=== PATIENT | female | born 1950 | race Caucasian/White ===

== ENCOUNTER 2017-04-26 20:15 | Inpatient (IN) | payer MEDICARE ==
[~2017-04-26] VITALS: Ht 162.6 cm; Wt 80.2 kg
[~2017-04-26 20:15] MED LIST: ASPI81TA82 PO; CENE0.62 PO; HYDR-3129 PO; METO25CR PO; NEXI40CA PO; NORV10TA PO; ROSU40 OR; VALS160T4 PO
[2017-04-26 20:18] VITALS: BP 131/57; PULSE 86; RESP 16; TEMP 97.9; O2SAT 94
[2017-04-26 20:28] VITALS: BP 145/65; PULSE 90; RESP 18; TEMP 98.8; O2SAT 98
[2017-04-26] MEDS ORDERED: METO50TA11 PO (20:40)
[2017-04-26] MEDS ORDERED: VITA100T15 PO (20:40)
[2017-04-26] MEDS ORDERED: FOLI400T PO (20:40)
[2017-04-26] MEDS ORDERED: ASPI81CH CHEW (20:40)
[2017-04-26] MEDS ORDERED: FLUT50SP EACH NARE (20:40)
[2017-04-26] MEDS ORDERED: VALS160T4 PO (20:40)
[2017-04-26] MEDS ORDERED: AMLO10TA2 PO (20:40)
[2017-04-26] MEDS ORDERED: ROSU1TAB10 PO (20:40)
[2017-04-26] MEDS ORDERED: CHOL5000 PO (20:40)
[2017-04-26 20:44] VITALS: BP 145/65; O2SAT 98
[2017-04-26] MEDS ORDERED: SODIUM CHLORIDE 0.9% FLUSH 10 ML FLUSH IVF PRN (20:45)
--- NOTE | 2017-04-26 21:00 | PD ---
HPI Chief Complaint: Cardiac Complaint Time Seen by Provider: 20:45 Travel History International Travel<30 days: No Contact w/Intl Traveler<30days: No Traveled to known affect area: No History of Present Illness HPI Patient is a 66-year-old female presenting to the emergency department with a chief complaint of feeling as if her heart is fluttering, she also reports that she has felt nauseated, she has a pain in her left groin that feels like a lump , she was chilled today, and she has pain in her left lower leg. She denies any headache, shortness of breath, chest pain, vomiting, fevers, diarrhea. Patient states that she struck her left foot yesterday, she started noticing that the left pacheco was read today. She states it's painful to the touch, she reports her pain a 6 out of 10 and sore. Patient's past medical history significant for hypertension, hyperlipidemia, prediabetes. She reports a family history significant for heart disease, she states her father had a heart attack at an early age. PFSH Past Medical History Arthritis: No Asthma: No Autoimmune Disease: No Blood Disorders: Yes Cancer: No Cardiovascular Problems: Yes (MVP) High Cholesterol: Yes Chemotherapy: No Congestive Heart Failure: No COPD: No Cerebrovascular Accident: No Coronary Artery Disease: Yes Diabetes: Yes Diminished Hearing: No Endocrine: No GERD: No Genitourinary: No Headaches: No Hepatitis: No Hiatal Hernia: No Hypertension: Yes Immune Disorder: No Kidney Stones: No Musculoskeletal: No Neurologic: No Psychiatric: No Reproductive: No Respiratory: No Immunizations Current: No Migraines: No Myocardial Infarction: No Radiation Therapy: No Renal Failure: No Seizures: No Sickle Cell Disease: No Sleep Apnea: No Ulcer: No Menopausal: Yes Past Surgical History Abdominal Surgery: No AICD: No Appendectomy: No Arteriovenous Shunt: No Cardiac Surgery: No Cholecystectomy: No Ear Surgery: No Endocrine Surgery: No Eye Surgery: No Genitourinary Surgery: No Hysterectomy: Yes () Insulin Pump: No Joint Replacement: No Oral Surgery: Yes (1999) Pacemaker: No Thoracic Surgery: No Other Surgery: Yes Family History Family Myocardial Infarction: Yes Family Hypercholesterolemia: Yes Social History Alcohol Use: Yes Tobacco Use: No Substance Use: No Allergies-Medications (Allergen,Severity, Reaction): Coded Allergies: Penicillin (Verified Allergy, Severe, Shortness of Breath, 04/26/17) Reported Meds & Prescriptions Reported Meds & Active Scripts Active Reported Vitamin B12 (Cyanocobalamin) Unknown Strength Tab Unknown Dose PO DAILY Vitamin D3 (Cholecalciferol) 5,000 Unit Cap 5,000 Units PO DAILY Fluticasone Nasal [place] 50 Mcg/Act Naspr 50 Mcg EACH NARE BID 50 mcg/spray Valsartan-Hydrochlorothiazide 160-12.5 Mg Tab 1 Tab PO DAILY Rosuvastatin (Rosuvastatin Calcium) 40 Mg Tab 40 Mg PO DAILY Metoprolol Succinate ER 24 HR (Metoprolol Succinate) 50 Mg Tab 50 Mg PO DAILY Folic Acid 400 Mcg Tab 1 Mg PO DAILY Aspirin 81 Mg Chew 81 Mg CHEW DAILY Amlodipine (Amlodipine Besylate) 10 Mg Tab 10 Mg PO DAILY Review of Systems Except as stated in HPI: all other systems reviewed are Neg General / Constitutional: Positive: Chills, No: Fever HENT: No: Headaches, Lightheadedness Cardiovascular: Positive: Palpitations, No: Chest Pain or Discomfort, Tachycardia, Dyspnea on exertion Respiratory: No: Shortness of Breath Gastrointestinal: Positive: Nausea, No: Vomiting, Abdominal Pain Genitourinary: Positive: Pelvic Pain (LEFT GROIN), No: Dysuria Musculoskeletal: Positive: Myalgias, Edema, Pain Skin: Positive Dryness (TO BILATERAL HEELS AND LEFT THUMB), Positive Lumps ( LEFT GROIN), Positive Change in Pigmentation Neurologic: No: Focal Abnormalities, Headache Physical Exam Narrative GENERAL: Overweight, well-developed, well-appearing female. Resting comfortably in no acute distress. SKIN: Warm and dry. Patient has chronic appearing dry skin to bilateral heels and left thumb. HEAD: Atraumatic. Normocephalic. EYES: Pupils equal and round. No scleral icterus. No injection or drainage. ENT: No nasal bleeding or discharge. Mucous membranes pink and moist. NECK: Trachea midline. No JVD. CARDIOVASCULAR: Regular rate and rhythm. RESPIRATORY: No accessory muscle use. Clear to auscultation. Breath sounds equal bilaterally. GASTROINTESTINAL: Abdomen soft, non-tender, nondistended. Hepatic and splenic margins not palpable. Tenderness to palpation in left groin, no erythema noted , enlarged lymph node. MUSCULOSKELETAL: Extremities without clubbing, cyanosis. The left pacheco that is erythematous, warm to the touch, tender to palpation. Positive pedal pulses, brisk less than 3 second capillary refill. Patient is neurovascularly intact. Negative Annie sign. NEUROLOGICAL: Awake and alert. No obvious cranial nerve deficits. Motor grossly within normal limits. Five out of 5 muscle strength in the arms and legs. Normal speech. PSYCHIATRIC: Appropriate mood and affect; insight and judgment normal. Data Data Last Documented VS Vital Signs Date Time Temp Pulse Resp B/P Pulse Ox O2 Delivery O2 Flow Rate FiO2 04/26/17 20:44 98 Room Air 04/26/17 20:44 145/65 04/26/17 20:28 98.8 90 18 Orders Electrocardiogram (04/26/17 20:40) Ckmb (Isoenzyme) Profile (04/26/17 20:40) Complete Blood Count With Diff (04/26/17 20:40) Comprehensive Metabolic Panel (04/26/17 20:40) Magnesium (Mg) (04/26/17 20:40) Prothrombin Time / Inr (Pt) (04/26/17 20:40) Act Partial Throm Time (Ptt) (04/26/17 20:40) Troponin I (04/26/17 20:40) Chest, Single Ap (04/26/17 20:40) Ecg Monitoring (04/26/17 20:40) Bilateral Bp Monitoring (04/26/17 20:40) Iv Access Insert/Monitor (04/26/17 20:40) Oximetry (04/26/17 20:40) Oxygen Administration (04/26/17 20:40) Sodium Chloride 0.9% Flush (Ns Flush) (04/26/17 20:45) Thyroid Stimulating Hormone (04/26/17 20:40) Us Leg Venous Doppler (04/26/17 ) Urinalysis - C+S If Indicated (04/26/17 21:00) Blood Culture (04/26/17 21:14) Lactic Acid (04/26/17 21:14) Vancomycin Inj (Vancomycin Inj) (04/26/17 21:30) Labs Laboratory Tests Test 04/26/17 04/26/17 04/26/17 20:45 21:08 21:23 White Blood Count 20.0 TH/MM3 Red Blood Count 4.52 MIL/MM3 Hemoglobin 13.6 GM/DL Hematocrit 40.5 % Mean Corpuscular Volume 89.6 FL Mean Corpuscular Hemoglobin 30.2 PG Mean Corpuscular Hemoglobin 33.7 % Concent Red Cell Distribution Width 13.0 % Platelet Count 217 TH/MM3 Mean Platelet Volume 9.7 FL Neutrophils (%) (Auto) 89.1 % Lymphocytes (%) (Auto) 3.8 % Monocytes (%) (Auto) 6.6 % Eosinophils (%) (Auto) 0.0 % Basophils (%) (Auto) 0.5 % Neutrophils # (Auto) 17.8 TH/MM3 Lymphocytes # (Auto) 0.8 TH/MM3 Monocytes # (Auto) 1.3 TH/MM3 Eosinophils # (Auto) 0.0 TH/MM3 Basophils # (Auto) 0.1 TH/MM3 CBC Comment DIFF FINAL Differential Comment Prothrombin Time 10.6 SEC Prothromb Time International 1.0 RATIO Ratio Activated Partial 25.5 SEC Thromboplast Time Sodium Level 138 MEQ/L Potassium Level 3.5 MEQ/L Chloride Level 104 MEQ/L Carbon Dioxide Level 25.0 MEQ/L Anion Gap 9 MEQ/L Blood Urea Nitrogen 22 MG/DL Creatinine 0.90 MG/DL Estimat Glomerular Filtration 63 ML/MIN Rate Random Glucose 122 MG/DL Calcium Level 9.0 MG/DL Magnesium Level 1.7 MG/DL Total Bilirubin 0.8 MG/DL Aspartate Amino Transf 22 U/L (AST/SGOT) Alanine Aminotransferase 30 U/L (ALT/SGPT) Alkaline Phosphatase 76 U/L Total Creatine Kinase 92 U/L Troponin I LESS THAN 0.02 NG/ML Total Protein 7.1 GM/DL Albumin 3.8 GM/DL Thyroid Stimulating Hormone 2.150 uIU/ML 3rd Gen Urine Color YELLOW Urine Turbidity CLEAR Urine pH 5.5 Urine Specific [place] 1.019 Urine Protein TRACE mg/dL Urine Glucose (UA) NEG mg/dL Urine Ketones NEG mg/dL Urine Occult Blood SMALL Urine Nitrite NEG Urine Bilirubin NEG Urine Urobilinogen LESS THAN 2.0 MG/DL Urine Leukocyte Esterase NEG Urine RBC 2 /hpf Urine WBC 1 /hpf Urine Squamous Epithelial 1 /hpf Cells Urine Bacteria RARE /hpf Urine Mucus FEW /lpf Microscopic Urinalysis Comment CULT NOT INDICATED Lactic Acid Level 1.4 mmol/L MDM Medical Decision Making Medical Screen Exam Complete: Yes Emergency Medical Condition: Yes Medical Record Reviewed: Yes Interpretation(s) Vital Signs Date Time Temp Pulse Resp B/P Pulse Ox O2 Delivery O2 Flow Rate FiO2 7/13/17 20:44 98 Room Air 04/26/17 20:44 145/65 04/26/17 20:44 98 Room Air 04/26/17 20:28 98.8 90 18 145/65 98 04/26/17 20:18 97.9 86 16 131/57 94 Room Air Differential Diagnosis Cellulitis versus DVT versus TIA versus arrhythmia versus electrolyte abnormality versus ACS versus other Narrative Course Patient is 66-year-old female that presented to emergency department for evaluation of groin pain, redness to her left lower leg, heart palpitations and general feeling unwell. Patient's vital signs are stable. Labs and imaging ordered and pending. Left leg appears cellulitic, venous ultrasound of the left lower extremity ordered to rule out DVT. Source of infection could be from the fissures in her feet which appear chronic in nature. Chest x-ray shows no acute disease CBC with elevated white count at 20 with left shift, with this result blood cultures and lactic acid were added on. Vancomycin 1 g IV 1 dose ordered. Ultrasound is negative for DVT, does show multiple lymph nodes. Chemistry reviewed, no acute findings identified TSH is normal Coags are unremarkable Urinalysis unremarkable Lactic acid 1.4 Patient will be admitted for IV antibiotic therapy. Discussed with patient, she is agreeable. Patient was also seen and evaluated by my attending physician. Discussed findings with Dr. Cardona, she accepted admission, patient placed under observation. Private room requested. Diagnosis Primary Impression: Cellulitis and abscess of left leg Admitting Information Admitting Physician Requests: Observation Condition: Stable Katherin Irizarry Apr 26, 2017 21:00
[2017-04-26 21:08] LABS: AUTOMATED NEUTROPHIL # 17.8 TH/MM3 (1.8-7.7); BASOPHIL # 0.1 TH/MM3 (0-0.2); BASOPHIL % 0.5 % (0.0-2.0); HEMATOCRIT 40.5 % (35.0-46.0); HEMO FLAGS DIFF FINAL; LYMPH % 3.8 % (9.0-44.0); LYMPHOCYTE # 0.8 TH/MM3 (1.0-4.8); MEAN CELL VOLUME 89.6 FL (80.0-100.0); MEAN CORPUSCULAR HEMOGLOBIN 30.2 PG (27.0-34.0); MEAN CORPUSCULAR HGB CONC 33.7 % (32.0-36.0); MONO % 6.6 % (0.0-8.0); NEUT % 89.1 % (16.0-70.0); PLATELET COUNT 217 TH/MM3 (150-450); RED BLOOD COUNT 4.52 MIL/MM3 (4.00-5.30)
--- NOTE | 2017-04-26 21:10 | RADRPT ---
EXAM DATE/TIME: 04/26/2017 20:47 [facility] COMPARISON: No previous studies available for comparison. INDICATIONS : Chest discomfort; chest palpitations. MEDICAL HISTORY : Hypertension. Diabetes mellitus type II. Coronary artery disease. SURGICAL HISTORY : Cardiac stent. ENCOUNTER: Initial ACUITY: 3 days PAIN SCORE: 2/10 LOCATION: Bilateral chest FINDINGS: The lungs are clear without infiltrate, nodule, or mass. There is no appreciable pleural effusion fo r technique. Heart and mediastinum are unremarkable. CONCLUSION: No acute cardiopulmonary disease. Mikey Gallardo MD on April 26, 2017 at 21:08 Board Certified Radiologist. This report was verified electronically.
[2017-04-26 21:18] LABS: APTT (PATIENT) 25.5 SEC (24.3-30.1); PROTHROMBIN TIME - PATIENT 10.6 SEC (9.8-11.6)
[2017-04-26] MEDS ORDERED: VANCOMYCIN INJ 1,000 MG in SODIUM CHLOR 0.9% 250 ML INJ 250 ML IV ONE (21:30)
[2017-04-26 21:32] LABS: ALT (GPT) 30 U/L (10-53); ANION GAP 9 MEQ/L (5-15); AST (GOT) 22 U/L (15-37); BLOOD UREA NITROGEN 22 MG/DL (7-18); CHLORIDE 104 MEQ/L (98-107); GLOMERULAR FILTRATION RATE 63 ML/MIN (>89); MAGNESIUM 1.7 MG/DL (1.5-2.5); POTASSIUM 3.5 MEQ/L (3.5-5.1); SODIUM (NA) 138 MEQ/L (136-145)
[2017-04-26 21:43] LABS: ALKALINE PHOSPHATASE 76 U/L (45-117); TOTAL BILIRUBIN ADULT 0.8 MG/DL (0.2-1.0)
[2017-04-26 21:44] LABS: CREATINE KINASE 92 U/L (26-192)
--- NOTE | 2017-04-26 22:02 | RADRPT ---
EXAM DATE/TIME: 04/26/2017 21:21 [facility] COMPARISON: No previous studies available for comparison. INDICATIONS : Swelling. MEDICAL HISTORY : Hypercholesterolemia. Hypertension. Gum recession. Coronary artery disease. Fibroids. Diabetes. SURGICAL HISTORY : Oral surgery. Right knee surgery. ENCOUNTER: Initial ACUITY: 1 day PAIN SCORE: 2/10 LOCATION: Left leg. TECHNIQUE: Venous ultrasound of the leg was performed from the inguinal ligament to the proximal calf. Real-billy e, color Doppler and spectral tracing, compression and augmentation techniques were used. FINDINGS: There is normal compressibility of the deep venous system from the inguinal region to the proximal ca lf. No echogenic clot is seen in the lumen of the common femoral, femoral, popliteal, and posterior tibial veins. There is a normal response of the venous system to proximal and distal augmentation an d respiration. Multiple lymph nodes are present the largest measures 2.8 cm in size with fatty hilum. CONCLUSION: Multiple lymph nodes and no DVT. Mikey Gallardo MD on April 26, 2017 at 22:00 Board Certified Radiologist. This report was verified electronically.
[2017-04-26 22:14] LABS: BACTERIA, URINE RARE /hpf; BLOOD, URINE SMALL (NEG); COMMENT (UR) CULT NOT INDICATED; CULTURE IF INDICATED CULT NOT INDICATED; GLUCOSE,URINE NEG (NEG); KETONE, URINE NEG (NEG); MUCUS URINE FEW /lpf (OCC); NITRITE,URINE NEG (NEG); PH, URINE 5.5 (5.0-8.5); SQUAMOUS EPITHELIAL CELL URINE 1 /hpf (0-5); URINE COLOR YELLOW (YELLW/STRAW)
--- NOTE | 2017-04-26 23:07 | PD ---
Data Data Last Documented VS Vital Signs Date Time Temp Pulse Resp B/P Pulse Ox O2 Delivery O2 Flow Rate FiO2 04/26/17 20:44 98 Room Air 04/26/17 20:44 145/65 04/26/17 20:28 98.8 90 18 Orders Electrocardiogram (04/26/17 20:40) Ckmb (Isoenzyme) Profile (04/26/17 20:40) Complete Blood Count With Diff (04/26/17 20:40) Comprehensive Metabolic Panel (04/26/17 20:40) Magnesium (Mg) (04/26/17 20:40) Prothrombin Time / Inr (Pt) (04/26/17 20:40) Act Partial Throm Time (Ptt) (04/26/17 20:40) Troponin I (04/26/17 20:40) Chest, Single Ap (04/26/17 20:40) Ecg Monitoring (04/26/17 20:40) Bilateral Bp Monitoring (04/26/17 20:40) Iv Access Insert/Monitor (04/26/17 20:40) Oximetry (04/26/17 20:40) Oxygen Administration (04/26/17 20:40) Sodium Chloride 0.9% Flush (Ns Flush) (04/26/17 20:45) Thyroid Stimulating Hormone (04/26/17 20:40) Us Leg Venous Doppler (04/26/17 ) Urinalysis - C+S If Indicated (04/26/17 21:00) Blood Culture (04/26/17 21:14) Lactic Acid (04/26/17 21:14) Vancomycin Inj (Vancomycin Inj) (04/26/17 21:30) Admit Order (Ed Use Only) (04/26/17 22:26) Labs Laboratory Tests Test 04/26/17 04/26/17 04/26/17 20:45 21:08 21:23 White Blood Count 20.0 TH/MM3 Red Blood Count 4.52 MIL/MM3 Hemoglobin 13.6 GM/DL Hematocrit 40.5 % Mean Corpuscular Volume 89.6 FL Mean Corpuscular Hemoglobin 30.2 PG Mean Corpuscular Hemoglobin 33.7 % Concent Red Cell Distribution Width 13.0 % Platelet Count 217 TH/MM3 Mean Platelet Volume 9.7 FL Neutrophils (%) (Auto) 89.1 % Lymphocytes (%) (Auto) 3.8 % Monocytes (%) (Auto) 6.6 % Eosinophils (%) (Auto) 0.0 % Basophils (%) (Auto) 0.5 % Neutrophils # (Auto) 17.8 TH/MM3 Lymphocytes # (Auto) 0.8 TH/MM3 Monocytes # (Auto) 1.3 TH/MM3 Eosinophils # (Auto) 0.0 TH/MM3 Basophils # (Auto) 0.1 TH/MM3 CBC Comment DIFF FINAL Differential Comment Prothrombin Time 10.6 SEC Prothromb Time International 1.0 RATIO Ratio Activated Partial 25.5 SEC Thromboplast Time Sodium Level 138 MEQ/L Potassium Level 3.5 MEQ/L Chloride Level 104 MEQ/L Carbon Dioxide Level 25.0 MEQ/L Anion Gap 9 MEQ/L Blood Urea Nitrogen 22 MG/DL Creatinine 0.90 MG/DL Estimat Glomerular Filtration 63 ML/MIN Rate Random Glucose 122 MG/DL Calcium Level 9.0 MG/DL Magnesium Level 1.7 MG/DL Total Bilirubin 0.8 MG/DL Aspartate Amino Transf 22 U/L (AST/SGOT) Alanine Aminotransferase 30 U/L (ALT/SGPT) Alkaline Phosphatase 76 U/L Total Creatine Kinase 92 U/L Troponin I LESS THAN 0.02 NG/ML Total Protein 7.1 GM/DL Albumin 3.8 GM/DL Thyroid Stimulating Hormone 2.150 uIU/ML 3rd Gen Urine Color YELLOW Urine Turbidity CLEAR Urine pH 5.5 Urine Specific [place] 1.019 Urine Protein TRACE mg/dL Urine Glucose (UA) NEG mg/dL Urine Ketones NEG mg/dL Urine Occult Blood SMALL Urine Nitrite NEG Urine Bilirubin NEG Urine Urobilinogen LESS THAN 2.0 MG/DL Urine Leukocyte Esterase NEG Urine RBC 2 /hpf Urine WBC 1 /hpf Urine Squamous Epithelial 1 /hpf Cells Urine Bacteria RARE /hpf Urine Mucus FEW /lpf Microscopic Urinalysis Comment CULT NOT INDICATED Lactic Acid Level 1.4 mmol/L MDM Supervised Visit with MATTI: Yes Narrative Course The history, exam, and medical decision-making in the associated midlevel provider note were completed with my assistance. I reviewed and agree with the findings presented. I attest that I had a [id number] encounter with the patient on the same day, and personally performed and documented my assessment and findings in the medical record. *My assessment and Findings: This is a 66-year-old female who has a history of prediabetes who presents to the emergency department with increasing swelling and redness of her left lower extremity associated with some palpitations and some swelling in her groin. On exam she has a cellulitis of the distal left lower extremity and she has some cracks in the skin on the sole of her foot which I suspect may be the etiology of her infection. She has a leukocytosis of 20. I think the patient would benefit from admission for IV antibiotics in the setting of cellulitis. Diagnosis Primary Impression: Cellulitis and abscess of left leg Condition: Stable Mai Cruz MD Apr 26, 2017 23:07
[2017-04-26 23:24] VITALS: BP 121/58; PULSE 104; RESP 18; O2SAT 92
--- NOTE | 2017-04-26 23:34 | HHI.HP ---
cc: Tegan Yañez HPI [facility] Tegan Yañez MD Admission Diagnosis cellulitis Diagnoses: (1) Cellulitis Chief Complaint: chills, palpitations Travel History International Travel<30 Days: No Contact w/Intl Traveler <30 Da: No Traveled to Known Affected Are: No History of Present Illness Written by Carmella Cote, acting as scribe for Dr. Cardona on 04/26/17 at 23:34. The patient is seen in the ED. She reports that she has palpitations off and on chronically. She denies atrial fibrillation. Denies accompanying shortness of breath. She was also complaining of left leg pain. The patient states that she is pre-diabetic. Plantar surface of foot is red with skin cracking. There is a large crack inferior to great toe and it is edematous and quite tender. States she was chilled and her lips were turning blue and her fingers looked like they'd been left in water for too long. Nausea/no vomiting. The patient is also reporting left lower abdominal pain, denies hematuria, dysuria. She reports diarrhea for 2 - 3 times per day; denies black stool. She reports diverticulosis history. She reports some red streaks on toilet paper and endorses a history of hemorrhoids. Review of Systems Except as stated in HPI: all other systems reviewed are Neg Past Family Social History Past Medical History CAD with stent placement 2007 MVP Hyperlipidemia Pre-diabetes Hypertension Denies COPD/asthma/emphysema, liver or kidney problems, DVT, PE, CVA, seizures, thyroid dysfunction, or cancer. Past Surgical History Hysterectomy Right knee arthroscopy - forearm Left arm ORIF with plate placement Nose polyps . Reported Medications Reported Meds & Active Scripts Active Reported Vitamin B12 (Cyanocobalamin) Unknown Strength Tab Unknown Dose PO DAILY Vitamin D3 (Cholecalciferol) 5,000 Unit Cap 5,000 Units PO DAILY Fluticasone Nasal [place] 50 Mcg/Act Naspr 50 Mcg EACH NARE BID 50 mcg/spray Valsartan-Hydrochlorothiazide 160-12.5 Mg Tab 1 Tab PO DAILY Rosuvastatin (Rosuvastatin Calcium) 40 Mg Tab 40 Mg PO DAILY Metoprolol Succinate ER 24 HR (Metoprolol Succinate) 50 Mg Tab 50 Mg PO DAILY Folic Acid 400 Mcg Tab 1 Mg PO DAILY Aspirin 81 Mg Chew 81 Mg CHEW DAILY Amlodipine (Amlodipine Besylate) 10 Mg Tab 10 Mg PO DAILY . Allergies: Coded Allergies: Penicillin (Verified Allergy, Severe, Shortness of Breath, 04/26/17) Active Ordered Medications Current Medications Sodium Chloride 2 ml 2 ml UNSCH PRN IVF FLUSH AFTER USING IV ACCESS; Start at 20:45 Vancomycin HCl/ Sodium Chloride (Vancomycin Inj/ NS 250 ml Inj) 250 ml @ 250 mls/hr ONCE ONCE IV Last administered on 04/26/17t 21:41; Start 04/26/17 at 21 :30; Stop 04/26/17 at 22:29; Status DC . Family History Sister with sarcoma - rare type - head/neck - spindle cell Nephew with cancer Mother heart problems Father heart problems . Social History Alcohol: social use, 3 - 4 drinks per month Tobacco: quit 10 - 15 years ago Illicit Drugs: denies . Physical Exam Vital Signs Vital Signs Date Time Temp Pulse Resp B/P Pulse Ox O2 Delivery O2 Flow Rate FiO2 04/26/17 23:24 104 18 121/58 92 Room Air 04/26/17 20:44 98 Room Air 04/26/17 20:44 145/65 04/26/17 20:44 98 Room Air 04/26/17 20:28 98.8 90 18 145/65 98 04/26/17 20:18 97.9 86 16 131/57 94 Room Air Physical Exam GENERAL: This is a pleasant female patient, in no apparent distress. SKIN: Plantar surface of left foot is red with skin cracking noted on heel. There is a large crack inferior to great toe and it is edematous and quite tender. The left lower leg has erythema extending up from ankle to mid pacheco area. The skin is notably warm to touch. HEAD: Atraumatic. Normocephalic. EYES: No scleral icterus. No injection or drainage. ENT: Nose without bleeding, purulent drainage. NECK: Trachea midline. No JVD. CARDIOVASCULAR: Regular rate and rhythm without murmurs, gallops, or rubs. RESPIRATORY: Clear to auscultation. Breath sounds equal bilaterally. No wheezes , rales, or rhonchi. GASTROINTESTINAL: Abdomen soft, slightly tender left lower abdominal quadrant, nondistended. No guarding. MUSCULOSKELETAL: Extremities without clubbing, cyanosis, or edema. No calf tenderness. NEUROLOGICAL: Awake and alert. Motor and sensory grossly within normal limits. Normal speech. . Laboratory Laboratory Tests Test 04/26/17 04/26/17 04/26/17 20:45 21:08 21:23 White Blood Count 20.0 Red Blood Count 4.52 Hemoglobin 13.6 Hematocrit 40.5 Mean Corpuscular Volume 89.6 Mean Corpuscular Hemoglobin 30.2 Mean Corpuscular Hemoglobin 33.7 Concent Red Cell Distribution Width 13.0 Platelet Count 217 Mean Platelet Volume 9.7 Neutrophils (%) (Auto) 89.1 Lymphocytes (%) (Auto) 3.8 Monocytes (%) (Auto) 6.6 Eosinophils (%) (Auto) 0.0 Basophils (%) (Auto) 0.5 Neutrophils # (Auto) 17.8 Lymphocytes # (Auto) 0.8 Monocytes # (Auto) 1.3 Eosinophils # (Auto) 0.0 Basophils # (Auto) 0.1 CBC Comment DIFF FINAL Differential Comment Prothrombin Time 10.6 Prothromb Time International 1.0 Ratio Activated Partial 25.5 Thromboplast Time Sodium Level 138 Potassium Level 3.5 Chloride Level 104 Carbon Dioxide Level 25.0 Anion Gap 9 Blood Urea Nitrogen 22 Creatinine 0.90 Estimat Glomerular Filtration 63 Rate Random Glucose 122 Calcium Level 9.0 Magnesium Level 1.7 Total Bilirubin 0.8 Aspartate Amino Transf 22 (AST/SGOT) Alanine Aminotransferase 30 (ALT/SGPT) Alkaline Phosphatase 76 Total Creatine Kinase 92 Troponin I LESS THAN 0.02 Total Protein 7.1 Albumin 3.8 Thyroid Stimulating Hormone 2.150 3rd Gen Urine Color YELLOW Urine Turbidity CLEAR Urine pH 5.5 Urine Specific [place] 1.019 Urine Protein TRACE Urine Glucose (UA) NEG Urine Ketones NEG Urine Occult Blood SMALL Urine Nitrite NEG Urine Bilirubin NEG Urine Urobilinogen LESS THAN 2.0 Urine Leukocyte Esterase NEG Urine RBC 2 Urine WBC 1 Urine Squamous Epithelial 1 Cells Urine Bacteria RARE Urine Mucus FEW Microscopic Urinalysis Comment CULT NOT INDICATED Lactic Acid Level 1.4 Date/Time Procedure Status Source Growth 04/26/17 21:23 Aerobic Blood Culture Received Blood Peripheral Pending 04/26/17 21:23 Anaerobic Blood Culture Received Blood Peripheral Pending Result Diagram: 04/26/17204404/26/172044 Imaging Last Impressions Chest X-Ray 04/26/172039 Signed Impressions: Service Date/Time: April 20:47 - CONCLUSION: No acute cardiopulmonary disease. Mikey Gallardo MD Lower Extremity Ultrasound 04/26/17 0000 Signed Impressions: Service Date/Time: , April 26, 2017 21:21 - CONCLUSION: Multiple lymph nodes and no DVT. Mikey Gallardo MD . Assessment and Plan Problem List: (1) Cellulitis ICD Code: L03.90 Status: Acute (2) Leukocytosis ICD Code: D72.829 Status: Acute (3) Abdominal pain ICD Code: R10.9 Status: Acute (4) Palpitations ICD Code: R00.2 Status: Acute Assessment and Plan Mrs. Partida presented to the ED on 04/26/17 complaining of heart fluttering, nausea, chills, pain in left lower leg, and a lump in her left groin. Cellulitis - pain on plantar surface near great toe with skin impairment - Foot x-ray to evaluate for osteomyelitis - concern regarding diabetes vs pre-diabetes - will check HgA1C (EMR reviewed and HgA1C was 5.9 in 2013, nothing more recent in system) Leukocytosis with neutrophilia - likely secondary to cellulitis - WBC 20.0 - Lactic acid 1.4 - repeat CBC in a.m. and follow WBC results Abdominal pain - check CT of abdomen/pelvis with IV contrast - suspect diverticulitis - await results to assist in determining best antibiotic therapy choice for cellulitis Palpitations in patient with CAD s/p stenting - Continuous cardiac telemetry to monitor for arrhythmia - Monitor vital signs every 4h - suspect symptoms are related to tachycardia secondary to infectious process DVT prophylaxis - Lovenox 40 mg subq q24h . This note was transcribed by [email or web address] [Carmella Cote]. I, Dr. Alexandra Cardona personally performed the history, physical exam, and medical decision making; and confirmed the accuracy of the information in the transcribed note. Authenticated by Dr. Alexandra Cardona on 04/26/17 at 23:34. Discussed Condition With ER physician, patient, and RN . Carmella Cote Apr 26, 2017 23:34 Alexandra Cardona MD May 09, 2017 09:02
[2017-04-27] VITALS (8 sets, daily range): BP systolic 119–135; BP diastolic 57–65; PULSE 85–104; RESP 18; TEMP 98.5–99.9; O2SAT 94–100
[2017-04-27] MEDS ORDERED: SODIUM CHLORIDE 0.9% FLUSH 10 ML FLUSH IV FLUSH PRN
[2017-04-27] MEDS ORDERED: NALOXONE HCL 0.4 MG/ML AMP IV PRN
--- NOTE | 2017-04-27 01:24 | RADRPT ---
EXAM DATE/TIME: 04/27/2017 00:46 [facility] COMPARISON: No previous studies available for comparison. INDICATIONS : Pain in left foot. Dry skin. MEDICAL HISTORY : None. SURGICAL HISTORY : None. ENCOUNTER: Initial ACUITY: 2 weeks PAIN SCORE: 3/10 LOCATION: Left posterior near first digit FINDINGS: Two view examination of the left foot demonstrates no soft tissue swelling, dislocation, or fracture. The calcaneus is intact. Bony mineralization is normal. CONCLUSION: No acute disease. Chris Patel MD on April 27, 2017 at 1:22 Board Certified Radiologist. This report was verified electronically.
[2017-04-27] MEDS: ENOXAPARIN SODIUM 40 MG/0.4 ML SYRINGE SQ SCH (05:14)
[2017-04-27] MEDS: SODIUM CHLORIDE 0.9% FLUSH 10 ML FLUSH IV FLUSH SCH ×2 (07:51→20:06)
[2017-04-27 08:04] LABS: AUTOMATED NEUTROPHIL # 17.6 TH/MM3 (1.8-7.7); BASOPHIL % 0.2 % (0.0-2.0); HEMATOCRIT 36.6 % (35.0-46.0); HEMO FLAGS DIFF FINAL; LYMPH % 5.2 % (9.0-44.0); MEAN CELL VOLUME 88.8 FL (80.0-100.0); MEAN CORPUSCULAR HEMOGLOBIN 30.1 PG (27.0-34.0); MEAN CORPUSCULAR HGB CONC 33.9 % (32.0-36.0); MONO % 5.8 % (0.0-8.0); NEUT % 88.8 % (16.0-70.0); PLATELET COUNT 195 TH/MM3 (150-450); RED BLOOD COUNT 4.12 MIL/MM3 (4.00-5.30); RED CELL DISTRIBUTION WIDTH 13.1 % (11.6-17.2); WHITE BLOOD COUNT 19.8 TH/MM3 (4.0-11.0)
[2017-04-27 08:27] LABS: ANION GAP 9 MEQ/L (5-15); BICARBONATE 25.1 MEQ/L (21.0-32.0); BLOOD UREA NITROGEN 17 MG/DL (7-18); CHLORIDE 102 MEQ/L (98-107); GLOMERULAR FILTRATION RATE 79 ML/MIN (>89); SODIUM (NA) 136 MEQ/L (136-145)
[2017-04-27] MEDS ORDERED: POTASSIUM CHLORIDE 20 MEQ CONTROLLED RELEASE TAB PO ONE (09:45)
[2017-04-27] MEDS ORDERED: MAGNESIUM SULFATE 1 GM PREMIX 100 ML IV ONE (09:45)
[2017-04-27] MEDS ORDERED: DIATRIZOATE MEGLUM/DIATRIZOATE SOD 9 ML CUP PO ONE (09:45)
--- NOTE | 2017-04-27 10:43 | HHI.PR ---
Subjective Remarks Follow-up for lower extremity cellulitis, palpitations, abdominal pain. The patient is doing well today. She is drinking contrast for abdominal CT. Lower extremity redness is improving since admission. She does have some swelling of that leg. She continues to have mild palpitations. She denies any chest pain or shortness of breath. Abdominal pain is mild. She's had a colonoscopy in the past and told that she had diverticulosis. She's never had diverticulitis. She denies any fevers or chills. She did have a small amount of blood whenever she wiped recently. Objective Vitals Vital Signs Date Time Temp Pulse Resp B/P Pulse Ox O2 Delivery O2 Flow Rate FiO2 04/27/17 08:00 99.2 97 18 119/57 95 04/27/17 04:00 98.5 88 18 131/60 95 04/27/17 03:31 85 04/27/17 03:08 Room Air 04/27/17 00:14 102 18 121/59 96 04/27/17 00:00 98.9 104 18 131/60 100 04/26/17 23:24 104 18 121/58 92 Room Air 04/26/17 20:44 98 Room Air 04/26/17 20:44 145/65 04/26/17 20:44 98 Room Air 04/26/17 20:28 98.8 90 18 145/65 98 04/26/17 20:18 97.9 86 16 131/57 94 Room Air I/O 04/26/17 04/26/17 04/26/17 04/27/17 04/27/17 04/27/17 07:00 15:00 23:00 07:00 15:00 23:00 Intake Total 240 ml Balance 240 ml Intake Oral 240 ml # Voids 0 # Bowel Movements 0 Result Diagram: 04/27/17 0703 04/27/17 0703 Imaging Last Impressions Foot X-Ray 04/27/17 0000 Signed Impressions: Service Date/Time: Thursday, April 27, 2017 00:46 - CONCLUSION: No acute disease. Chris Patel MD Chest X-Ray 04/26/170 Signed Impressions: Service Date/Time: April 20:47 - CONCLUSION: No acute cardiopulmonary disease. Mikey Gallardo MD Lower Extremity Ultrasound 04/26/17 0000 Signed Impressions: Service Date/Time: April 21:21 - CONCLUSION: Multiple lymph nodes and no DVT. KMaribeth Gallardo MD Objective Remarks GENERAL: Well-developed well-nourished. In no acute distress. SKIN: Warm and dry. Dry cracked skin of both feet. HEENT: Normocephalic. Pupils equal and round. Mucous membranes pink and moist. CARDIOVASCULAR: Regular rate and rhythm. No murmur appreciated. RESPIRATORY: No accessory muscle use. Clear to auscultation. Breath sounds equal bilaterally. GASTROINTESTINAL: Abdomen soft, non-tender, nondistended. Bowel sounds x4. MUSCULOSKELETAL: Erythema and edema of the anterior pacheco on the left, erythema is decreased compared to previous marking. Trace edema on the right. NEUROLOGICAL: Awake and alert. No focal neurological deficits. Moves upper and lower extremities spontaneously. Normal speech. PSYCHIATRIC: Appropriate mood and affect; insight and judgment normal. A/P Problem List: (1) Cellulitis ICD Code: L03.90 Status: Acute (2) Leukocytosis ICD Code: D72.829 Status: Acute (3) Abdominal pain ICD Code: R10.9 Status: Acute (4) Palpitations ICD Code: R00.2 Status: Acute Assessment and Plan Mrs. Partida presented to the ED on 04/26/17 complaining of heart fluttering, nausea, chills, pain in left lower leg, and a lump in her left groin. Cellulitis, left anterior pacheco: Improving. Reviewed: Left foot x-ray with no acute process. Ultrasound negative for DVT. -Received IV vancomycin in the ED, continue -Elevate lower extremity -Lac-Hydrin for dry skin Abdominal pain: Abdominal exam is essentially benign. The patient does have significant leukocytosis. History of diverticulosis. - check CT of abdomen/pelvis - On empiric antibiotics Sepsis: Possibly secondary to cellulitis or underlying diverticulitis. WBC 20K. Tachycardia. Tmax 99.2. Lactic acid within normal limits. -IV antibiotics -Follow up blood cultures and CBC Palpitations: Suspect symptoms are related to tachycardia secondary to infectious process Reviewed: Patient with some mild sinus tachycardia. EKG essentially unremarkable. TSH within normal limits. - Continuous cardiac telemetry to monitor for arrhythmia Hyperglycemia: History of prediabetes. -Hemoglobin A1c pending Hypokalemia/hypomagnesemia: -Replace potassium orally and magnesium IV -Follow up BMP DVT prophylaxis - Lovenox 40 mg subq q24h Diomedes Patel Apr 27, 2017 10:43
[2017-04-27] MEDS: LACTIC ACID (AMMONIUM LACTATE) 12% LOTION 225 GM BTL TOPICAL SCH ×2 (10:45→20:05)
[2017-04-27] MEDS ORDERED: PIPERACIL-TAZO 3.375 GM PREMIX 50 ML IV SCH (11:00)
[2017-04-27] MEDS ORDERED: IOHEXOL 350 MG/ML 10 ML VIAL (for RAD DIAG) IV ONE (14:41)
--- NOTE | 2017-04-27 15:08 | RADRPT ---
EXAM DATE/TIME: 04/27/2017 14:30 [facility] COMPARISON: No previous studies available for comparison. INDICATIONS : Lower left quadrant pain history of diverticulosis IV CONTRAST: 66 cc Omnipaque 350 (iohexol) IV ORAL CONTRAST: Prescribed oral contrast ingested. RADIATION DOSE: 14.52 CTDIvol (mGy) MEDICAL HISTORY : Hypertension. Diverticulosis. Diabetes mellitus type 2.CAD SURGICAL HISTORY : Hysterectomy. ENCOUNTER: Subsequent ACUITY: 3 days PAIN SCALE: 6/10 LOCATION: Left lower quadrant TECHNIQUE: Volumetric scanning of the abdomen and pelvis was performed. Using automated exposure control and ad justment of the mA and/or kV according to patient size, radiation dose was kept as low as reasonably achievable to obtain optimal diagnostic quality images. DICOM format image data is available electro nically for review and comparison. FINDINGS: LOWER LUNGS: Minimal left basal atelectasis/scarring. LIVER: There are small peripheral subcentimeter hypodense lesions noted in segments 5 and 6 of the liver faustino t are too small to characterize. A third hypodense lesion in segment 4B measuring 1.2 x 0.8 cm and ap pears to demonstrate peripheral globular enhancement although this cannot be confirmed due to the lac k of early arterial phase. Liver is otherwise grossly unremarkable. Small gallstone in the gallbladde r neck which is mildly distended but otherwise unremarkable by CT. SPLEEN: Normal size without lesion. PANCREAS: Within normal limits. KIDNEYS: Simple appearing cyst in the inferior pole of the left kidney measuring 4.0 x 2.9 x 4.1 cm. Multiple small parapelvic cysts on the left. Kidneys otherwise demonstrate symmetric enhancement without evide nce for hydronephrosis. ADRENAL GLANDS: Within normal limits. VASCULAR: There is no aortic aneurysm. BOWEL/MESENTERY: Moderate sigmoid diverticulosis and scattered descending colonic diverticula. No significant inflamma tory changes with suggested diverticulitis. Appendix is normal. Remainder of the bowel are unremarkab le without evidence for obstruction. ABDOMINAL WALL: Within normal limits. RETROPERITONEUM: Scattered lymph nodes are subcentimeter in size in short axis diameter. BLADDER: No wall thickening or mass. REPRODUCTIVE: Uterus is surgically absent. The INGUINAL: Bilateral slightly prominent lymph nodes with the largest measuring 1.9 x 3.4 cm on the left. MUSCULOSKELETAL: No focal abnormal lytic or blastic bony lesions. CONCLUSION: 1. Moderate sigmoid diverticulosis and scattered descending colonic diverticula without significant i nflammatory changes to suggest diverticulitis at this time. 2. Cholelithiasis. 3. Multiple very small hypodense nearly cystic hepatic lesions with the largest in segment 4B. These lesions are incompletely characterized due to small size. There are some findings that suggest the se gment 4 lesion may reflect a hemangioma. Statistically, subcentimeter low-density hepatic lesions ref lect cysts. 4. Left renal cysts. 5. Nonspecific inguinal adenopathy, likely reactive. Leobardo Ruelas MD on April 27, 2017 at 14:46 Board Certified Radiologist. This report was verified electronically.
[2017-04-27] MEDS ORDERED: Vancomycin Consult Pharmacy 1 EA OTHER SCH (15:45)
[2017-04-27 16:44] LABS: HEMOGLOBIN A1b 1.7 %; HEMOGLOBIN LA1C 2.1 %; HEMOGLOBIN P3 4.1 %
[2017-04-27] MEDS: VANCOMYCIN 1,500 MG/NS 500 ML IV SCH ×2 (17:21)
[2017-04-28] VITALS (7 sets, daily range): BP systolic 113–139; BP diastolic 61–70; PULSE 65–94; RESP 18–20; TEMP 97.2–99.7; O2SAT 94–100
[2017-04-28] MEDS: ENOXAPARIN SODIUM 40 MG/0.4 ML SYRINGE SQ SCH (05:29)
[2017-04-28 07:57] LABS: AUTOMATED NEUTROPHIL # 11.2 TH/MM3 (1.8-7.7); BASOPHIL % 0.2 % (0.0-2.0); EOSINOPHIL % 0.2 % (0.0-4.0); HEMO FLAGS DIFF FINAL; LYMPH % 8.6 % (9.0-44.0); LYMPHOCYTE # 1.2 TH/MM3 (1.0-4.8); MEAN CELL VOLUME 90.7 FL (80.0-100.0); MEAN CORPUSCULAR HEMOGLOBIN 30.4 PG (27.0-34.0); MEAN CORPUSCULAR HGB CONC 33.5 % (32.0-36.0); MONO % 9.4 % (0.0-8.0); NEUT % 81.6 % (16.0-70.0); PLATELET COUNT 170 TH/MM3 (150-450); RED BLOOD COUNT 4.08 MIL/MM3 (4.00-5.30); RED CELL DISTRIBUTION WIDTH 13.3 % (11.6-17.2); WHITE BLOOD COUNT 13.7 TH/MM3 (4.0-11.0)
[2017-04-28 08:27] LABS: BICARBONATE 23.1 MEQ/L (21.0-32.0); MAGNESIUM 2.3 MG/DL (1.5-2.5); POTASSIUM 3.9 MEQ/L (3.5-5.1)
[2017-04-28] MEDS: SODIUM CHLORIDE 0.9% FLUSH 10 ML FLUSH IV FLUSH SCH ×2 (09:38→21:40)
[2017-04-28] MEDS: LACTIC ACID (AMMONIUM LACTATE) 12% LOTION 225 GM BTL TOPICAL SCH ×2 (09:39→21:40)
--- NOTE | 2017-04-28 10:58 | HHI.PR ---
Subjective Remarks The patient said that her abdominal pain was located in the lower got. She says when she has a bowel movement she feels better. She says the redness in her left leg has improved. She does describe dryness and cracking in both of her feet. She believes she gets allergic reactions to one of her medications, but is unable to pinpoint which one. Discussed with nursing at the bedside. Objective Vitals Vital Signs Date Time Temp Pulse Resp B/P Pulse Ox O2 Delivery O2 Flow Rate FiO2 04/28/17 08:00 99.4 88 20 132/61 94 04/28/17 04:00 98.3 84 18 135/61 100 04/28/17 00:00 99.7 94 18 139/65 95 04/27/17 20:00 Room Air 04/27/17 20:00 99.9 94 18 128/59 94 04/27/17 16:00 99.2 91 18 129/65 96 04/27/17 12:00 95 Room Air 04/27/17 12:00 99.1 90 18 135/64 95 I/O 04/27/17 04/27/17 04/27/17 04/28/17 04/28/17 04/28/17 07:00 15:00 23:00 07:00 15:00 23:00 Intake Total 240 ml 0 ml Output Total 700 ml 500 ml 300 ml Balance 240 ml -700 ml -500 ml -300 ml Intake Oral 240 ml 0 ml Output Urine Total 700 ml 500 ml 300 ml # Voids 0 # Bowel Movements 0 0 0 0 Result Diagram: 04/28/17 0711 04/28/17 0711 Imaging Last Impressions Foot X-Ray 04/27/17 0000 Signed Impressions: Service Date/Time: Thursday, April 27, 2017 00:46 - CONCLUSION: No acute disease. Chris Patel MD Abdomen/Pelvis CT 04/27/17 0000 Signed Impressions: Service Date/Time: Thursday, April 27, 2017 14:30 - CONCLUSION: 1. Moderate sigmoid diverticulosis and scattered descending colonic diverticula without significant inflammatory changes to suggest diverticulitis at this time. 2. Cholelithiasis. 3. Multiple very small hypodense nearly cystic hepatic lesions with the largest in segment 4B. These lesions are incompletely characterized due to small size. There are some findings that suggest the segment 4 lesion may reflect a hemangioma. Statistically, subcentimeter low-density hepatic lesions reflect cysts. 4. Left renal cysts. 5. Nonspecific inguinal adenopathy, likely reactive. Leobardo Ruelas MD Chest X-Ray 04/26/172039 Signed Impressions: Service Date/Time: April 20:47 - CONCLUSION: No acute cardiopulmonary disease. Mikey Gallardo MD Lower Extremity Ultrasound 04/26/17 0000 Signed Impressions: Service Date/Time: April 21:21 - CONCLUSION: Multiple lymph nodes and no DVT. Mikey Gallardo MD Objective Remarks GENERAL: Well-developed well-nourished. In no acute distress. SKIN: Warm and dry. Dry cracked skin on bottom of both feet. HEENT: Normocephalic. Pupils equal and round. Mucous membranes pink and moist. CARDIOVASCULAR: Regular rate and rhythm. No murmur appreciated. RESPIRATORY: No accessory muscle use. Clear to auscultation. Breath sounds equal bilaterally. GASTROINTESTINAL: Abdomen soft, non-tender, nondistended. Bowel sounds x4. MUSCULOSKELETAL: Erythema and edema of the anterior pacheco on the left, erythema is decreased compared to previous marking. Tender and warm to the touch. Trace edema on the right. NEUROLOGICAL: Awake and alert. No focal neurological deficits. Moves upper and lower extremities spontaneously. Normal speech. PSYCHIATRIC: Appropriate mood and affect; insight and judgment normal. Medications and IVs Current Medications Medications (Trade) Dose Ordered Sig/Dima Route Start Time Stop Time Status Last Admin (NS Flush) 2 ml UNSCH PRN IV FLUSH 04/27/17 00:00 (NS Flush) 2 ml BID IV FLUSH 04/27/17 09:00 04/28/17 09:38 (Narcan Inj) 0.4 mg UNSCH PRN IV 04/27/17 00:00 (Lovenox Inj) 40 mg Q24H SQ 04/27/17 06:00 04/28/17 05:29 Lactic Acid 1 applic 1 applic BID TOPICAL 04/27/17 10:45 04/28/17 09:39 Pharmacy Profile Note 0 ml @ 0 mls/hr UNSCH OTHER 04/27/17 15:45 (Vancomycin Inj/ NS 500 ml Inj) 515 ml @ 257.5 mls/ hr Q24H IV 04/27/17 17:00 04/27/17 17:21 Miscellaneous Information SPECIFIC LAB TO BE ... ONCE ONCE .XX 04/30/17 16:45 04/30/17 16:46 A/P Problem List: (1) Cellulitis ICD Code: L03.90 Status: Acute (2) Leukocytosis ICD Code: D72.829 Status: Acute (3) Abdominal pain ICD Code: R10.9 Status: Acute (4) Palpitations ICD Code: R00.2 Status: Acute Assessment and Plan Cellulitis, left anterior pacheco/ Sepsis Reviewed: Left foot x-ray with no acute process. Ultrasound negative for DVT. Still spiking low grade fevers. Leukocytosis improved. - Received IV vancomycin in the ED, continue with pharmacy assisting. - Elevate lower extremity. - Lac-Hydrin for dry skin. - follow blood cultures. Abdominal pain Abdomen is benign. CT of abdomen/pelvis with diverticulosis, hepatic cysts. Symptoms are consistent with IBS. - outpt follow-up. Palpitations EKG essentially unremarkable. TSH within normal limits. Seems resolved. - Continuous cardiac telemetry to monitor for arrhythmia. Hyperglycemia History of prediabetes. Hemoglobin A1c 5.7%. - lifestyle modifications. Hypokalemia Resolved. - follow labs as needed. DVT prophylaxis - Lovenox 40 mg subq q24h Discharge Planning D/c in AM if continues to improve. Sharif Carrillo DO Apr 28, 2017 10:58
--- NOTE | 2017-04-28 11:00 | EKG ---
Date Performed: 04/26/2017 Time Performed: 20:29:45 PTAGE: 66 years EKG: Sinus rhythm NONSPECIFIC T-WAVE ABNORMALITY BORDERLINE ECG PREVIOUS TRACING : 01/11/2013 06.39 DOCTOR: Adrian Shepard Interpretating Date/Time 04/28/2017 10:55:04
[2017-04-28] MEDS: ASPIRIN 81 MG CHEW TAB CHEW SCH (11:45)
[2017-04-28] MEDS: FOLIC ACID 1 MG TAB PO SCH (11:45)
[2017-04-28] MEDS: ATORVASTATIN 80 MG TAB PO SCH (11:45)
[2017-04-28] MEDS: METOPROLOL SUCCINATE 50 MG EXTENDED RELEASE TAB PO SCH (11:50)
[2017-04-28] MEDS: FLUTICASONE PROPIONATE 50 MCG/ACT 16 GM NASAL SPRAY EACH NARE SCH ×2 (14:27→21:40)
[2017-04-28] MEDS: CHOLECALCIFEROL (VIT D3) 5000 UNIT CAP PO SCH (14:27)
[2017-04-28] MEDS: VANCOMYCIN 1,500 MG/NS 500 ML IV SCH ×2 (17:48)
[2017-04-29] VITALS (8 sets, daily range): BP systolic 133–163; BP diastolic 65–84; PULSE 62–79; RESP 17–20; TEMP 96.8–98.2; O2SAT 94–100
[2017-04-29] MEDS: ENOXAPARIN SODIUM 40 MG/0.4 ML SYRINGE SQ SCH (05:43)
[2017-04-29] MEDS: LACTIC ACID (AMMONIUM LACTATE) 12% LOTION 225 GM BTL TOPICAL SCH ×2 (09:00→20:26)
[2017-04-29] MEDS ORDERED: ALUMINUM/MAGNESIUM/SIMETH 30 ML CUP PO ONE (09:15)
[2017-04-29] MEDS ORDERED: ACETAMINOPHEN 325 MG TAB PO PRN (09:15)
[2017-04-29] MEDS ORDERED: ALUMINUM/MAGNESIUM/SIMETH 30 ML CUP PO PRN (09:15)
[2017-04-29] MEDS ORDERED: SODIUM CHLOR 0.9% 1000 ML INJ 1,000 ML IV SCH (09:15)
--- NOTE | 2017-04-29 09:17 | HHI.PR ---
Subjective Remarks The patient complained of feeling dizzy. She also felt nauseous and had some diarrhea. She said she was afraid that if she left the hospital she would come right back. She still has tenderness in her left leg but it does not bother her if she is not bearing weight. Has been ambulating. Objective Vitals Vital Signs Date Time Temp Pulse Resp B/P Pulse Ox O2 Delivery O2 Flow Rate FiO2 04/29/17 04:33 96.8 73 18 141/66 100 04/29/17 01:55 98.0 74 17 143/65 100 04/28/17 21:07 98.0 75 18 121/70 100 04/28/17 19:59 80 04/28/17 16:00 97.8 70 20 113/68 97 04/28/17 12:00 97.2 65 18 113/66 96 I/O 04/28/17 04/28/17 04/28/17 04/29/17 04/29/17 04/29/17 07:00 15:00 23:00 07:00 15:00 23:00 Intake Total 600 ml Output Total 300 ml 300 ml Balance -300 ml 300 ml Intake Oral 600 ml Output Urine Total 300 ml 300 ml # Voids 10 # Bowel Movements 0 Result Diagram: 04/28/17 0711 04/28/17 0711 Imaging Last Impressions Foot X-Ray 04/27/17 0000 Signed Impressions: Service Date/Time: Thursday, April 27, 2017 00:46 - CONCLUSION: No acute disease. Chris Patel MD Abdomen/Pelvis CT 04/27/17 0000 Signed Impressions: Service Date/Time: Thursday, April 27, 2017 14:30 - CONCLUSION: 1. Moderate sigmoid diverticulosis and scattered descending colonic diverticula without significant inflammatory changes to suggest diverticulitis at this time. 2. Cholelithiasis. 3. Multiple very small hypodense nearly cystic hepatic lesions with the largest in segment 4B. These lesions are incompletely characterized due to small size. There are some findings that suggest the segment 4 lesion may reflect a hemangioma. Statistically, subcentimeter low-density hepatic lesions reflect cysts. 4. Left renal cysts. 5. Nonspecific inguinal adenopathy, likely reactive. Leobardo Ruelas MD Chest X-Ray 04/26/172039 Signed Impressions: Service Date/Time: April 20:47 - CONCLUSION: No acute cardiopulmonary disease. Mikey Gallardo MD Lower Extremity Ultrasound 04/26/17 0000 Signed Impressions: Service Date/Time: April 21:21 - CONCLUSION: Multiple lymph nodes and no DVT. Mikey Gallardo MD Objective Remarks GENERAL: Well-developed well-nourished. In no acute distress. SKIN: Warm and dry. Dry cracked skin on bottom of both feet. HEENT: Normocephalic. Pupils equal and round. Mucous membranes pink and moist. CARDIOVASCULAR: Regular rate and rhythm. No murmur appreciated. RESPIRATORY: No accessory muscle use. Clear to auscultation. Breath sounds equal bilaterally. GASTROINTESTINAL: Abdomen soft, non-tender, nondistended. Bowel sounds x4. MUSCULOSKELETAL: Erythema and edema of the anterior pacheco on the left, erythema is decreased compared to previous marking. Tender and warm to the touch. NEUROLOGICAL: Awake and alert. No focal neurological deficits. Moves upper and lower extremities spontaneously. Normal speech. PSYCHIATRIC: Appropriate mood and affect; insight and judgment normal. Medications and IVs Current Medications Medications (Trade) Dose Ordered Sig/Dima Route Start Time Stop Time Status Last Admin (NS Flush) 2 ml UNSCH PRN IV FLUSH 04/27/17 00:00 (NS Flush) 2 ml BID IV FLUSH 04/27/17 09:00 04/28/17 21:40 (Narcan Inj) 0.4 mg UNSCH PRN IV 04/27/17 00:00 (Lovenox Inj) 40 mg Q24H SQ 04/27/17 06:00 04/29/17 05:43 (Lac-Hydrin 12% Lotion) 1 applic BID TOPICAL 04/27/17 10:45 04/28/17 21:40 Miscellaneous Information SPECIFIC LAB TO BE NOMAN... ONCE ONCE .XX 04/30/17 16:45 04/30/17 16:46 (Aspirin Chew) 81 mg DAILY CHEW 04/28/17 11:00 04/28/17 11:45 (Vitamin D3) 5,000 units DAILY PO 04/28/17 12:00 04/28/17 14:27 (Flonase Jaime Spr) 1 spray BID EACH NARE 7/15/17 12:00 04/28/17 21:40 (Folate) 1 mg DAILY PO 04/28/17 11:00 04/28/17 11:45 (Toprol Xl) 50 mg DAILY PO 04/28/17 11:00 04/28/17 11:50 (Lipitor) 80 mg DAILY PO 04/28/17 11:00 04/28/17 11:45 A/P Problem List: (1) Cellulitis ICD Code: L03.90 Status: Acute (2) Leukocytosis ICD Code: D72.829 Status: Acute (3) Abdominal pain ICD Code: R10.9 Status: Acute (4) Palpitations ICD Code: R00.2 Status: Acute Assessment and Plan Cellulitis, left anterior pacheco/ Sepsis Reviewed: Left foot x-ray with no acute process. Ultrasound negative for DVT. Still spiking low grade fevers. Leukocytosis improved. - switch vancomycin to PO clindamycin. - Elevate lower extremity. - Lac-Hydrin for dry skin. - follow blood cultures. NGTD. - pain control as needed. Abdominal pain/ N/V Abdomen is benign. CT of abdomen/pelvis with diverticulosis, hepatic cysts. Symptoms are consistent with IBS. Continues to have diarrhea and nausea along with lightheadedness. - IVFs, ADAT. - outpt follow-up. - pain control and antiemetics as needed. - start a PPI. Maalox as needed. - check LFTs, lipase level. Palpitations EKG essentially unremarkable. TSH within normal limits. Seems resolved. - Continuous cardiac telemetry to monitor for arrhythmia. Hyperglycemia History of prediabetes. Hemoglobin A1c 5.7%. - lifestyle modifications. Hypokalemia Resolved. - follow labs as needed. DVT prophylaxis - Lovenox 40 mg subq q24h Discharge Planning D/c in AM if feeling better Sharif Carrillo DO Apr 29, 2017 09:17
[2017-04-29] MEDS: FOLIC ACID 1 MG TAB PO SCH (10:07)
[2017-04-29] MEDS: FLUTICASONE PROPIONATE 50 MCG/ACT 16 GM NASAL SPRAY EACH NARE SCH ×2 (10:07→20:25)
[2017-04-29] MEDS: METOPROLOL SUCCINATE 50 MG EXTENDED RELEASE TAB PO SCH (10:07)
[2017-04-29] MEDS: ATORVASTATIN 80 MG TAB PO SCH (10:08)
[2017-04-29] MEDS: ASPIRIN 81 MG CHEW TAB CHEW SCH (10:08)
[2017-04-29] MEDS: CHOLECALCIFEROL (VIT D3) 5000 UNIT CAP PO SCH (10:08)
[2017-04-29] MEDS: SODIUM CHLORIDE 0.9% FLUSH 10 ML FLUSH IV FLUSH SCH ×2 (10:09→20:25)
[2017-04-29] MEDS: PANTOPRAZOLE SOD 40 MG DELAYED RELEASE TAB PO SCH (10:16)
[2017-04-29] MEDS: CLINDAMYCIN 150 MG CAP PO SCH ×3 (10:17→23:09)
[2017-04-29 11:36] LABS: AUTOMATED NEUTROPHIL # 6.7 TH/MM3 (1.8-7.7); BASOPHIL % 0.4 % (0.0-2.0); EOSINOPHIL # 0.2 TH/MM3 (0-0.4); EOSINOPHIL % 2.3 % (0.0-4.0); HEMATOCRIT 36.8 % (35.0-46.0); HEMO FLAGS DIFF FINAL; LYMPH % 15.5 % (9.0-44.0); LYMPHOCYTE # 1.4 TH/MM3 (1.0-4.8); MEAN CELL VOLUME 91.4 FL (80.0-100.0); MEAN CORPUSCULAR HEMOGLOBIN 30.7 PG (27.0-34.0); MEAN CORPUSCULAR HGB CONC 33.6 % (32.0-36.0); MONO % 9.5 % (0.0-8.0); NEUT % 72.3 % (16.0-70.0); PLATELET COUNT 178 TH/MM3 (150-450); RED BLOOD COUNT 4.03 MIL/MM3 (4.00-5.30); RED CELL DISTRIBUTION WIDTH 13.5 % (11.6-17.2); WHITE BLOOD COUNT 9.2 TH/MM3 (4.0-11.0)
[2017-04-29 12:07] LABS: ALKALINE PHOSPHATASE 76 U/L (45-117); ALT (GPT) 26 U/L (10-53); ANION GAP 5 MEQ/L (5-15); AST (GOT) 16 U/L (15-37); BICARBONATE 29.7 MEQ/L (21.0-32.0); BLOOD UREA NITROGEN 12 MG/DL (7-18); CHLORIDE 107 MEQ/L (98-107); GLOMERULAR FILTRATION RATE 91 ML/MIN (>89); POTASSIUM 4.1 MEQ/L (3.5-5.1); SODIUM (NA) 142 MEQ/L (136-145); TOTAL BILIRUBIN ADULT 0.5 MG/DL (0.2-1.0)
[2017-04-29] MEDS: LACTOBACILLUS ACIDOPHILUS TAB PO SCH ×2 (13:43→17:01)
[2017-04-30] VITALS: BP 121/60; PULSE 75; RESP 18; TEMP 97.6; O2SAT 99
[2017-04-30 04:00] VITALS: BP 151/77; PULSE 75; RESP 18; TEMP 98.1; O2SAT 97
[2017-04-30] MEDS: ENOXAPARIN SODIUM 40 MG/0.4 ML SYRINGE SQ SCH (05:17)
[2017-04-30] MEDS: CLINDAMYCIN 150 MG CAP PO SCH (05:17)
[2017-04-30 08:00] VITALS: BP 130/64; PULSE 68; RESP 20; TEMP 98.3; O2SAT 95
[2017-04-30 09:07] VITALS: PULSE 67
[2017-04-30] MEDS: LACTOBACILLUS ACIDOPHILUS TAB PO SCH (09:09)
[2017-04-30] MEDS: CHOLECALCIFEROL (VIT D3) 5000 UNIT CAP PO SCH (09:09)
[2017-04-30] MEDS: PANTOPRAZOLE SOD 40 MG DELAYED RELEASE TAB PO SCH (09:09)
[2017-04-30] MEDS: ASPIRIN 81 MG CHEW TAB CHEW SCH (09:09)
[2017-04-30] MEDS: FOLIC ACID 1 MG TAB PO SCH (09:10)
[2017-04-30] MEDS: ATORVASTATIN 80 MG TAB PO SCH (09:10)
[2017-04-30] MEDS: METOPROLOL SUCCINATE 50 MG EXTENDED RELEASE TAB PO SCH (09:10)
[2017-04-30] MEDS: LACTIC ACID (AMMONIUM LACTATE) 12% LOTION 225 GM BTL TOPICAL SCH (09:10)
[2017-04-30] MEDS: SODIUM CHLORIDE 0.9% FLUSH 10 ML FLUSH IV FLUSH SCH (09:10)
[2017-04-30] MEDS: FLUTICASONE PROPIONATE 50 MCG/ACT 16 GM NASAL SPRAY EACH NARE SCH (09:10)
[2017-04-30] MEDS ORDERED: PANT40TA3 PO (09:33)
[2017-04-30] MEDS ORDERED: CLIN150 PO (09:33)
[2017-04-30] MEDS ORDERED: LACT PO (09:33)
[2017-04-30] MEDS ORDERED: VALS1TAB65 PO (09:33)
--- NOTE | 2017-04-30 09:34 | HHI.DCPOC ---
Discharge Care Plan Diagnosis: (1) Abdominal pain (2) Leukocytosis (3) Palpitations (4) Cellulitis Goals to Promote Your Health * To prevent worsening of your condition and complications * To maintain your health at the optimal level Directions to Meet Your Goals Take your medications as prescribed Follow your dietary instruction Follow activity as directed Keep your appointments as scheduled Take your immunizations and boosters as scheduled If your symptoms worsen call your PCP, if no PCP go to Urgent Care Center or Emergency Room Smoking is Dangerous to Your Health. Avoid second hand smoke Call the 24-hour hour crisis hotline for domestic abuse at Sharif Carrillo DO Apr 30, 2017 09:33
--- NOTE | 2017-04-30 09:40 | HHI.DS ---
Discharge Summary Admission Date Apr 26, 2017 at 22:28 Discharge Date: Apr 30, 2017 Admitting Diagnosis cellulitis (1) Cellulitis ICD Code: L03.90 Diagnosis: Principal (2) Leukocytosis ICD Code: D72.829 Diagnosis: Principal (3) Abdominal pain ICD Code: R10.9 (4) Palpitations ICD Code: R00.2 Procedures None Brief History - From Admission Written by Carmella Cote, acting as scribe for Dr. Cardona on 04/26/17 at 23:34. The patient is seen in the ED. She reports that she has palpitations off and on chronically. She denies atrial fibrillation. Denies accompanying shortness of breath. She was also complaining of left leg pain. The patient states that she is pre-diabetic. Plantar surface of foot is red with skin cracking. There is a large crack inferior to great toe and it is edematous and quite tender. States she was chilled and her lips were turning blue and her fingers looked like they'd been left in water for too long. Nausea/no vomiting. The patient is also reporting left lower abdominal pain, denies hematuria, dysuria. She reports diarrhea for 2 - 3 times per day; denies black stool. She reports diverticulosis history. She reports some red streaks on toilet paper and endorses a history of hemorrhoids. CBC/BMP: 04/29/17 1105 04/29/17 1105 Significant Findings Laboratory Tests Test 04/28/17 04/29/17 07:11 11:05 White Blood Count 13.7 TH/MM3 (4.0-11.0) Neutrophils (%) (Auto) 81.6 % 72.3 % (16.0-70.0) (16.0-70.0) Lymphocytes (%) (Auto) 8.6 % (9.0-44.0) Monocytes (%) (Auto) 9.4 % (0.0-8.0) 9.5 % (0.0-8.0) Neutrophils # (Auto) 11.2 TH/MM3 (1.8-7.7) Monocytes # (Auto) 1.3 TH/MM3 (0-0.9) Chloride Level 108 MEQ/L (98-107) Calcium Level 8.4 MG/DL (8.5-10.1) Random Glucose 118 MG/DL (74-106) Albumin 2.8 GM/DL (3.4-5.0) Imaging Last Impressions Foot X-Ray 04/27/17 0000 Signed Impressions: Service Date/Time: Thursday, April 27, 2017 00:46 - CONCLUSION: No acute disease. Chris Patel MD Abdomen/Pelvis CT 04/27/17 0000 Signed Impressions: Service Date/Time: Thursday, April 27, 2017 14:30 - CONCLUSION: 1. Moderate sigmoid diverticulosis and scattered descending colonic diverticula without significant inflammatory changes to suggest diverticulitis at this time. 2. Cholelithiasis. 3. Multiple very small hypodense nearly cystic hepatic lesions with the largest in segment 4B. These lesions are incompletely characterized due to small size. There are some findings that suggest the segment 4 lesion may reflect a hemangioma. Statistically, subcentimeter low-density hepatic lesions reflect cysts. 4. Left renal cysts. 5. Nonspecific inguinal adenopathy, likely reactive. Leobardo Ruelas MD Chest X-Ray 04/26/[id number] Signed Impressions: Service Date/Time: April 20:47 - CONCLUSION: No acute cardiopulmonary disease. Mikey Gallardo MD Lower Extremity Ultrasound 04/26/17 0000 Signed Impressions: Service Date/Time: April 21:21 - CONCLUSION: Multiple lymph nodes and no DVT. Mikey Gallardo MD PE at Discharge GENERAL: Well-developed well-nourished. In no acute distress. SKIN: Warm and dry. Dry cracked skin on bottom of both feet. HEENT: Normocephalic. Pupils equal and round. Mucous membranes pink and moist. CARDIOVASCULAR: Regular rate and rhythm. No murmur appreciated. RESPIRATORY: No accessory muscle use. Clear to auscultation. Breath sounds equal bilaterally. GASTROINTESTINAL: Abdomen soft, non-tender, nondistended. Bowel sounds x4. MUSCULOSKELETAL: Erythema and edema of the anterior pacheco on the left, erythema is decreased compared to previous marking. Tender and warm to the touch. NEUROLOGICAL: Awake and alert. No focal neurological deficits. Moves upper and lower extremities spontaneously. Normal speech. PSYCHIATRIC: Appropriate mood and affect; insight and judgment normal. Pt update on day of discharge The patient was feeling better. She says she doesn't need pain medications. She has been ambulatory. She had questions about her blood pressure medications. She mentioned that she had an area of dryness and cracking on her foot. Discussed with nursing. Hospital Course Cellulitis Left foot x-ray with no acute process. Ultrasound negative for DVT. She was started on IV vancomycin. She received pain medications as needed. Blood cultures with no growth to date. Leukocytosis improved. The pt's pain improved and she was ambulating well. We switched vancomycin to PO clindamycin. She will follow up with her PCP. Abdominal pain/ N/V Abdominal exam was benign. CT of abdomen/pelvis with diverticulosis and hepatic cysts. Symptoms are consistent with IBS. LFTs and lipase unremarkable. She received IVFs and antiemetics as needed. She was started on a PPI. She received Maalox as needed. She will follow up with her PCP. Palpitations EKG unremarkable. She was monitored on telemetry. Symptoms resolved. Pt Condition on Discharge: Good Discharge Disposition: Discharge Home Discharge Time: > 30 minutes Discharge Instructions DIET: Follow Instructions for: Heart Healthy Diet Activities you can perform: Weight Bearing as Jose Antonio Follow up Referrals: PCP Follow-up - 1 Week Podiatry - 2 Weeks with Reese Fisher DPM New Medications: Valsartan (Valsartan) 160 Mg Tab 160 MG PO DAILY Blood Pressure Management #30 Ref 0 TAB Clindamycin (Cleocin) 150 Mg Cap 450 MG PO Q6HR Infection Days 6 CAP Lactobacillus Acidophilus (Acidophilus/l-Sporogenes) 1 Tab Tab 1 TAB PO TID Antibiotics #18 TAB Pantoprazole (Pantoprazole) 40 Mg Tab 40 MG PO DAILY Stomach #30 TAB Continued Medications: Amlodipine (Amlodipine) 10 Mg Tab 10 MG PO DAILY Blood Pressure Management #30 Ref 0 TAB Aspirin (Aspirin) 81 Mg Chew 81 MG CHEW DAILY Ref 0 TAB Cholecalciferol (Vitamin D3) 5,000 Unit Cap 5000 UNITS PO DAILY Nutritional Supplement #30 Ref 0 CAP Cyanocobalamin (Vitamin B12) Unknown Strength Tab Unknown Dose PO DAILY #1 BOTTLE Fluticasone Nasal [place] (Fluticasone Nasal [place]) 50 Mcg/Act Naspr 50 MCG EACH NARE BID 50 mcg/spray Allergy Management #1 Ref 0 BOTTLE Folic Acid (Folic Acid) 400 Mcg Tab 1 MG PO DAILY Nutritional Supplement Ref 0 TAB Metoprolol Succinate ER 24 HR (Metoprolol Succinate ER 24 HR) 50 Mg Tab 50 MG PO DAILY #30 Ref 0 TAB Rosuvastatin (Rosuvastatin) 40 Mg Tab 40 MG PO DAILY Cholesterol Management #30 Ref 0 TAB Discontinued Medications: Valsartan-Hydrochlorothiazide (Valsartan-Hydrochlorothiazide) 160-12.5 Mg Tab 1 TAB PO DAILY Blood Pressure Management #30 Ref 0 TAB Sharif Carrillo DO Apr 30, 2017 09:40
[2017-04-30] MEDS ORDERED: PHARMACY ORDERED LAB ONE (16:45)
== END 2017-04-30 11:15 | disposition home or self-care (01) | DRG 603 ==
LOC: NEPC 20:15 → OBSVTOIN 22:28 → NEDA 22:28 → N04B 04-27 00:33
PROVIDERS: ADMIT Hospitalist; ATTEND Hospitalist
DX: L03.116 Cellulitis of left lower limb (principal); E11.65 Type 2 diabetes mellitus with hyperglycemia; K76.89 Other specified diseases of liver; I10 Essential (primary) hypertension; L02.416 Cutaneous abscess of left lower limb; E78.00 Pure hypercholesterolemia, unspecified; E78.5 Hyperlipidemia, unspecified; Z82.49 Family history of ischemic heart disease and other diseases of the circulatory system; I25.10 Atherosclerotic heart disease of native coronary artery without angina pectoris; K64.9 Unspecified hemorrhoids; Z95.5 Presence of coronary angioplasty implant and graft; Z88.0 Allergy status to penicillin; Z87.891 Personal history of nicotine dependence; R00.2 Palpitations; E87.6 Hypokalemia; K57.90 Diverticulosis of intestine, part unspecified, without perforation or abscess without bleeding; K58.0 Irritable bowel syndrome with diarrhea
CPT/HCPCS: 71010; 73620; 74177; 76937; 80048; 80053; 81001; 82550; 82565; 83036; 83605; 83690; 83735; 84443; 84484; 85025; 85610; 85730; 87040; 93005; 93971; 96365; J1650; J2543; J3370; J3475; J7030; J7040; J7050; Q9963; Q9967

== ENCOUNTER 2017-06-29 18:49 | Emergency (ER) | payer MEDICARE ==
[~2017-06-29] VITALS: Ht 157.5 cm; Wt 75.0 kg
[~2017-06-29 18:49] MED LIST changes: +AMLO10TA2 PO; +ASPI81CH CHEW; -ASPI81TA82 PO; -CENE0.62 PO; +CHOL5000 PO; +CLIN150 PO; +FLUT50SP EACH NARE; +FOLI400T PO; -HYDR-3129 PO; +LACT PO; -METO25CR PO; +METO50TA11 PO; -NEXI40CA PO; -NORV10TA PO; +PANT40TA3 PO; +ROSU1TAB10 PO; -ROSU40 OR; -VALS160T4 PO; +VALS1TAB65 PO; +VITA100T15 PO
[2017-06-29 18:51] VITALS: BP 152/74; PULSE 88; RESP 20; TEMP 98.8; O2SAT 97
[2017-06-29] MEDS ORDERED: CEPH-460 PO (19:28)
--- NOTE | 2017-06-29 19:28 | PD ---
HPI Chief Complaint: Skin Problem Time Seen by Provider: 19:26 Travel History International Travel<30 days: No Contact w/Intl Traveler<30days: No Traveled to known affect area: No History of Present Illness HPI 66 year-old female with history of hypertension, diabetes, presents to emergency for evaluation of erythema of the anterior left distal lower extremity. Patient states she noticed it today and it has increased in size throughout the course the day. Does not recall any new exposures. No fever or chills. She is concerned because this is her last bout of cellulitis began. She has no other symptoms to report. PFSH Past Medical History Arthritis: No Asthma: No Autoimmune Disease: No Blood Disorders: Yes Anxiety: No Depression: No Cancer: No Cardiovascular Problems: Yes (MVP) High Cholesterol: Yes Chemotherapy: No Chest Pain: Yes (MITRAL VALVE PROLAPSE ) Congestive Heart Failure: No COPD: No Cerebrovascular Accident: No Coronary Artery Disease: Yes Diabetes: Yes Diminished Hearing: No Endocrine: No GERD: No Genitourinary: No Headaches: No Hepatitis: No Hiatal Hernia: No Hypertension: Yes Immune Disorder: No Kidney Stones: No Musculoskeletal: No Neurologic: No Psychiatric: No Reproductive: No Respiratory: No Immunizations Current: No Migraines: No Myocardial Infarction: No Radiation Therapy: No Renal Failure: No Seizures: No Sickle Cell Disease: No Sleep Apnea: No Ulcer: No Menopausal: Yes Past Surgical History Abdominal Surgery: No AICD: No Appendectomy: No Arteriovenous Shunt: No Body Medical Devices: left arm, right wrist, right knee Cardiac Surgery: Yes (cad with stent 2006) Cholecystectomy: No Ear Surgery: No Endocrine Surgery: No Eye Surgery: No Genitourinary Surgery: No Gynecologic Surgery: Yes (HYSTERECTOMY 199O) Hysterectomy: Yes () Insulin Pump: No Joint Replacement: No Oral Surgery: Yes (1999) Pacemaker: No Thoracic Surgery: No Other Surgery: Yes Family History Family Hypercholesterolemia: Yes Social History Alcohol Use: Yes Tobacco Use: No Substance Use: No Allergies-Medications (Allergen,Severity, Reaction): Coded Allergies: penicillin G (Unverified Allergy, Severe, Shortness of Breath, 05/29/17) Reported Meds & Prescriptions Reported Meds & Active Scripts Active Keflex (Cephalexin) 500 Mg Cap 500 Mg PO Q6H 5 Days Pantoprazole (Pantoprazole Sodium) 40 Mg Tab 40 Mg PO DAILY Acidophilus/l-Sporogenes (Lactobacillus Acidophilus) 1 Tab Tab 1 Tab PO TID Cleocin (Clindamycin HCl) 150 Mg Cap 450 Mg PO Q6HR 6 Days Valsartan 160 Mg Tab 160 Mg PO DAILY Reported Vitamin B12 (Cyanocobalamin) Unknown Strength Tab Unknown Dose PO DAILY Vitamin D3 (Cholecalciferol) 5,000 Unit Cap 5,000 Units PO DAILY Fluticasone Nasal [place] 50 Mcg/Act Naspr 50 Mcg EACH NARE BID 50 mcg/spray Rosuvastatin (Rosuvastatin Calcium) 40 Mg Tab 40 Mg PO DAILY Metoprolol Succinate ER 24 HR (Metoprolol Succinate) 50 Mg Tab 50 Mg PO DAILY Folic Acid 400 Mcg Tab 1 Mg PO DAILY Aspirin 81 Mg Chew 81 Mg CHEW DAILY Amlodipine (Amlodipine Besylate) 10 Mg Tab 10 Mg PO DAILY Review of Systems Except as stated in HPI: all other systems reviewed are Neg Physical Exam Narrative GENERAL: Well-nourished, well-developed female patient in no acute distress SKIN: Focused skin assessment warm/dry. 15 cm x 12 cm area of erythema on the anterior aspect of the left distal lower extremity. It is warm to touch. No open wounds are noted. HEAD: Normocephalic. EYES: No scleral icterus. No injection or drainage. NECK: Supple, trachea midline. No JVD or lymphadenopathy. CARDIOVASCULAR: Regular rate and rhythm without murmurs, gallops, or rubs. RESPIRATORY: Breath sounds equal bilaterally. No accessory muscle use. GASTROINTESTINAL: Abdomen soft, non-tender, nondistended. MUSCULOSKELETAL: No cyanosis, or edema. BACK: Nontender without obvious deformity. No CVA tenderness. Data Data Last Documented VS Vital Signs Date Time Temp Pulse Resp B/P (MAP) Pulse Ox O2 Delivery O2 Flow Rate FiO2 06/29/17 18:51 98.8 88 20 152/74 (100) 97 Orders Orders Cephalexin (Keflex) (06/29/17 19:30) Cephalexin (Keflex) (06/29/17 19:32) [facility] Medical Decision Making Medical Screen Exam Complete: Yes Emergency Medical Condition: Yes Medical Record Reviewed: Yes Differential Diagnosis Cellulitis versus contact dermatitis versus erysipelas Narrative Course 66-year-old female presents to emergency department for evaluation of erythema of the anterior distal left lower extremity. Patient appears without distress. Her vital signs are stable. The area is warm to touch and erythematous but blanchable. I will start her on Keflex for cellulitis. I encouraged her to follow-up with her primary care provider Dr. Tegan Yañez. She agrees to return immediately with any acute worsening of symptoms. Diagnosis Primary Impression: Left leg cellulitis Referrals: Primary Care Physician Patient Instructions: Cellulitis (ED), General Instructions Additional Instructions: Elevate the affected extremity Follow up with your primary care provider Return to ED with acute worsening of symptoms Med/Other Pt SpecificInfo: Prescription(s) given Scripts Cephalexin (Keflex) 500 Mg Cap 500 MG PO Q6H for Infection for 5 Days, #20 CAP 0 Refills Prov: Keeley Donaldson 06/29/17 Disposition: 01 DISCHARGE HOME Condition: Stable Keeley Donaldson Jun 29, 2017 19:28
[2017-06-29] MEDS ORDERED: CEPHALEXIN MONOHYDRATE 500 MG CAP PO ONE (19:30)
[2017-06-29] MEDS ORDERED: CEPHALEXIN MONOHYDRATE 500 MG CAP ONE (19:32)
== END 2017-06-29 20:18 | disposition home or self-care (01) ==
LOC: NEPK 18:49
DX: L03.116 Cellulitis of left lower limb (principal); I10 Essential (primary) hypertension; E11.9 Type 2 diabetes mellitus without complications
CPT/HCPCS: 99283

== ENCOUNTER 2017-07-06 07:18 | Emergency (ER) | payer MEDICARE ==
[~2017-07-06] VITALS: Ht 157.5 cm; Wt 78.0 kg
[~2017-07-06 07:18] MED LIST changes: +CEPH-460 PO
[2017-07-06] MEDS ORDERED: IOHEXOL 350 MG/ML 10 ML VIAL (for RAD DIAG) IVCONTRAST ONE (07:19)
[2017-07-06 07:23] VITALS: BP 141/64; PULSE 68; RESP 17; TEMP 97.9; O2SAT 99
[2017-07-06] MEDS ORDERED: SODIUM CHLOR 0.9% 1000 ML INJ 1,000 ML IV SCH (07:33)
[2017-07-06 07:35] VITALS: RESP 17; O2SAT 99
[2017-07-06] MEDS ORDERED: FEXO180T PO (07:36)
--- NOTE | 2017-07-06 07:44 | PD ---
HPI Chief Complaint: Abdominal Pain Time Seen by Provider: 07:33 Travel History International Travel<30 days: No Contact w/Intl Traveler<30days: No Traveled to known affect area: No History of Present Illness HPI 66-year-old female patient presents to the ER today because of one-day history of abdominal bloating pains which she rates it a 4 out of 10, diarrhea episodes last night, nausea and vomiting this morning. She denies any fevers, chest pains, shortness of breath, or other issues. However, she states that she has had left leg cellulitis and has been on 2 antibiotics. She states that she was on Keflex since Sunday and was switched to Bactrim 3 days ago, she also reports that she has been having itching all over her body last night and had taken Benadryl. She denies any bad food exposure, sick contacts, or other known exposures. Modifying Factors: None Associated Signs & Symptoms: Nausea, vomiting, abdominal bloating, diarrhea Risk Factors: Recent antibiotic use PFSH Past Medical History Hx Anticoagulant Therapy: Yes (ASA) Arthritis: No Asthma: No Autoimmune Disease: No Blood Disorders: Yes Anxiety: No Depression: No Cancer: No Cardiovascular Problems: Yes High Cholesterol: Yes Chemotherapy: No Chest Pain: Yes (MITRAL VALVE PROLAPSE ) Congestive Heart Failure: No COPD: No Cerebrovascular Accident: No Coronary Artery Disease: Yes Diabetes: Yes Diminished Hearing: No Endocrine: No GERD: No Genitourinary: No Headaches: No Hepatitis: No Hiatal Hernia: No Hypertension: Yes Immune Disorder: No Kidney Stones: No Musculoskeletal: No Neurologic: No Psychiatric: No Reproductive: No Respiratory: No Immunizations Current: No Migraines: No Myocardial Infarction: No Radiation Therapy: No Renal Failure: No Seizures: No Sickle Cell Disease: No Sleep Apnea: No Ulcer: No Menopausal: Yes Past Surgical History Abdominal Surgery: No AICD: No Appendectomy: No Arteriovenous Shunt: No Body Medical Devices: left arm, right wrist, right knee Cardiac Surgery: Yes (cad with stent 2006) Cholecystectomy: No Ear Surgery: No Endocrine Surgery: No Eye Surgery: No Genitourinary Surgery: No Gynecologic Surgery: Yes (HYSTERECTOMY 199O) Hysterectomy: Yes () Insulin Pump: No Joint Replacement: No Oral Surgery: Yes (1999) Pacemaker: No Thoracic Surgery: No Other Surgery: Yes Family History Family Hypercholesterolemia: Yes Social History Alcohol Use: Yes Tobacco Use: No Substance Use: No Allergies-Medications (Allergen,Severity, Reaction): Coded Allergies: penicillin G (Verified Allergy, Severe, Shortness of Breath, 07/06/17) Reported Meds & Prescriptions Reported Meds & Active Scripts Active Vibramycin (Doxycycline Hyclate) 100 Mg Cap 100 Mg PO BID 7 Days Zofran Odt (Ondansetron Odt) 4 Mg Tab 4 Mg SL Q6HR PRN Flagyl (Metronidazole) 500 Mg Tab 500 Mg PO TID 7 Days Benadryl Allergy (Diphenhydramine HCl) 25 Mg Tablet 25 Mg PO QID PRN Prednisone 50 Mg Tab 50 Mg PO DAILY 5 Days Keflex (Cephalexin) 500 Mg Cap 500 Mg PO Q6H 5 Days Pantoprazole (Pantoprazole Sodium) 40 Mg Tab 40 Mg PO DAILY Valsartan 160 Mg Tab 160 Mg PO DAILY Reported Fexofenadine (Fexofenadine HCl) 180 Mg Tab 180 Mg PO DAILY Vitamin B12 (Cyanocobalamin) Unknown Strength Tab Unknown Dose PO DAILY Vitamin D3 (Cholecalciferol) 5,000 Unit Cap 5,000 Units PO DAILY Fluticasone Nasal [place] 50 Mcg/Act Naspr 50 Mcg EACH NARE BID 50 mcg/spray Rosuvastatin (Rosuvastatin Calcium) 40 Mg Tab 40 Mg PO DAILY Metoprolol Succinate ER 24 HR (Metoprolol Succinate) 50 Mg Tab 50 Mg PO DAILY Folic Acid 400 Mcg Tab 1 Mg PO DAILY Aspirin 81 Mg Chew 81 Mg CHEW DAILY Amlodipine (Amlodipine Besylate) 10 Mg Tab 10 Mg PO DAILY Review of Systems Except as stated in HPI: all other systems reviewed are Neg Physical Exam Narrative GENERAL: Well developed elderly white female patient currently in mild distress. Awake and oriented 3. SKIN: Focused skin assessment warm/dry. HEAD: Atraumatic. Normocephalic. EYES: Pupils equal and round. No scleral icterus. No injection or drainage. ENT: No nasal bleeding or discharge. Mucous membranes pink and moist. NECK: Trachea midline. No JVD. CARDIOVASCULAR: Regular rate and rhythm. No murmur appreciated. RESPIRATORY: No accessory muscle use. Clear to auscultation. Breath sounds equal bilaterally. GASTROINTESTINAL: Abdomen soft, non-tender, nondistended. Hepatic and splenic margins not palpable. MUSCULOSKELETAL: No obvious deformities. No clubbing. No cyanosis. No edema. There is not significant erythema or tenderness on palpation of the left leg where her cellulitis was at this time. NEUROLOGICAL: Awake and alert. No obvious cranial nerve deficits. Motor grossly within normal limits. Normal speech. PSYCHIATRIC: Appropriate mood and affect; insight and judgment normal. Data Data Last Documented VS Vital Signs Date Time Temp Pulse Resp B/P (MAP) Pulse Ox O2 Delivery O2 Flow Rate FiO2 07/06/17 09:07 97.8 70 16 152/68 (96) 100 Room Air Orders Orders Complete Blood Count With Diff (07/06/17 07:33) Comprehensive Metabolic Panel (07/06/17 07:33) Lipase (07/06/17 07:33) Abdomen, Flat & Upright (07/06/17 ) Iv Access Insert/Monitor (07/06/17 07:33) Ecg Monitoring (07/06/17 07:33) Oximetry (07/06/17 07:33) Ondansetron Inj (Zofran Inj) (07/06/17 07:45) Sodium Chlor 0.9% 1000 Ml Inj (Ns 1000 M (07/06/17 07:33) Sodium Chloride 0.9% Flush (Ns Flush) (07/06/17 07:45) C Diff Toxin Pcr (07/06/17 07:44) Ct Abd/Pel W Iv Contrast(Rout) (07/06/17 08:23) Iohexol 350 Inj (Omnipaque 350 Inj) (07/06/17 07:19) Prednisone (Deltasone) (07/06/17 10:00) Diphenhydramine (Benadryl) (07/06/17 10:00) Labs Laboratory Tests Test 07/06/17 07:31 07/06/17 07:50 White Blood Count 15.7 TH/MM3 Red Blood Count 4.57 MIL/MM3 Hemoglobin 13.7 GM/DL Hematocrit 42.2 % Mean Corpuscular Volume 92.2 FL Mean Corpuscular Hemoglobin 30.0 PG Mean Corpuscular Hemoglobin Concent 32.5 % Red Cell Distribution Width 13.4 % Platelet Count 286 TH/MM3 Mean Platelet Volume 9.3 FL Neutrophils (%) (Auto) 81.5 % Lymphocytes (%) (Auto) 14.2 % Monocytes (%) (Auto) 3.2 % Eosinophils (%) (Auto) 0.7 % Basophils (%) (Auto) 0.4 % Neutrophils # (Auto) 12.8 TH/MM3 Lymphocytes # (Auto) 2.2 TH/MM3 Monocytes # (Auto) 0.5 TH/MM3 Eosinophils # (Auto) 0.1 TH/MM3 Basophils # (Auto) 0.1 TH/MM3 CBC Comment DIFF FINAL Differential Comment Blood Urea Nitrogen 18 MG/DL Creatinine 1.44 MG/DL Random Glucose 230 MG/DL Total Protein 7.0 GM/DL Albumin 3.2 GM/DL Calcium Level 8.2 MG/DL Alkaline Phosphatase 98 U/L Aspartate Amino Transf (AST/SGOT) 19 U/L Alanine Aminotransferase (ALT/SGPT) 27 U/L Total Bilirubin 0.3 MG/DL Sodium Level 143 MEQ/L Potassium Level 3.3 MEQ/L Chloride Level 109 MEQ/L Carbon Dioxide Level 22.5 MEQ/L Anion Gap 12 MEQ/L Estimat Glomerular Filtration Rate 37 ML/MIN Lipase 163 U/L MDM Medical Decision Making Medical Screen Exam Complete: Yes Emergency Medical Condition: Yes Medical Record Reviewed: Yes Interpretation(s) Laboratory Tests Test 07/06/17 07:31 07/06/17 07:50 White Blood Count 15.7 TH/MM3 (4.0-11.0) Neutrophils (%) (Auto) 81.5 % (16.0-70.0) Neutrophils # (Auto) 12.8 TH/MM3 (1.8-7.7) Creatinine 1.44 MG/DL (0.50-1.00) Random Glucose 230 MG/DL (74-106) Albumin 3.2 GM/DL (3.4-5.0) Calcium Level 8.2 MG/DL (8.5-10.1) Potassium Level 3.3 MEQ/L (3.5-5.1) Chloride Level 109 MEQ/L (98-107) Estimat Glomerular Filtration Rate 37 ML/MIN (>89) Last 24 hours Impressions Abdomen/Pelvis CT 07/06/17 0823 Signed Impressions: Service Date/Time: Thursday, July 06, 2017 08:41 - CONCLUSION: Stable CT scan of the abdomen and pelvis. No acute intra-abdominal or pelvic process. Uncomplicated diverticuli of the colon with hepatic and renal cysts. Adryan Arias MD Abdomen X-Ray 07/06/17 0000 Signed Impressions: Service Date/Time: Thursday, July 06, 2017 08:06 - CONCLUSION: 1. 12 mm calcification overlies the right midabdomen is unchanged and appears to be related to calcified lymph node or benign calcification in the upper abdomen. 2. No acute abnormalities. José Miguel Ro MD Differential Diagnosis Nausea, vomiting, abdominal bloating pains, diarrhea: gastroenteritis versus C. difficile diarrhea versus antibiotic side effect versus obstruction versus food poisoning Narrative Course Lab work indicated leukocytosis and CAT scan was also done to rule out acute intra-abdominal processes especially with the nausea and vomiting and abdominal discomfort. It did not show any signs of acute intra-abdominal processes. Her BUN and creatinine is mildly elevated and IV fluids were given, suspecting underlying dehydration. At this point, it is unclear whether this is a antibiotic side effect versus allergic reaction to the antibiotic and my plan would be to stop her Bactrim since it appears that her symptoms of nausea and vomiting and itchiness worsened after given the Bactrim. I do not see any obvious hives or any signs of angioedema at this time. It is unclear whether this was because of Benadryl treatment last night. My plan would be to treat her for allergic reaction as well. I have talked to the patient regarding the concerns over a cellulitis which she has intermittently due to eczema according to the patient. It appears that the Keflex was not doing any good and considering him taking her off of her Bactrim which is was supposed to be a 10 day course, I have talked her about the benefits and risks of putting her on other antibiotics. I have talked her about doxycycline is a possibility although this could worsen her diarrhea. C. difficile toxin is pending. As precaution, Flagyl has also been given. I would at this point have her talk to Dr. Yañez considering her complex medical diagnoses and have her follow-up closely with her. Return for any worsening in symptoms as needed. The plan has been discussed with her and she states understanding. Diagnosis Primary Impression: Nausea vomiting and diarrhea Additional Impressions: Cellulitis Leukocytosis Med/Other Pt SpecificInfo: Prescription(s) given, Med Stopped (Bactrim) Scripts Doxycycline Hyclate (Vibramycin) 100 Mg Cap 100 MG PO BID for Infection for 7 Days, #14 CAP 0 Refills Prov: Talib Grubbs MD 07/06/17 Ondansetron Odt (Zofran Odt) 4 Mg Tab 4 MG SL Q6HR Y for Nausea/Vomiting, #7 TAB 0 Refills Prov: Talib Grubbs MD 07/06/17 Metronidazole (Flagyl) 500 Mg Tab 500 MG PO TID for Infection for 7 Days, TAB 0 Refills Prov: Talib Grubbs MD 07/06/17 Diphenhydramine HCl (Benadryl Allergy) 25 Mg Tablet 25 MG PO QID Y for ALLERGIC REACTION, #20 Prov: Talib Grubbs MD 07/06/17 Prednisone (Prednisone) 50 Mg Tab 50 MG PO DAILY for 5 Days, #5 TAB 0 Refills Prov: Talib Grubbs MD 07/06/17 Disposition: 01 DISCHARGE HOME Condition: Stable Talib Grubbs MD Jul 06, 2017 07:44
[2017-07-06] MEDS ORDERED: ONDANSETRON HCL 4 MG/2 ML VIAL IVP ONE (07:45)
[2017-07-06] MEDS ORDERED: SODIUM CHLORIDE 0.9% FLUSH 10 ML FLUSH IV FLUSH PRN (07:45)
[2017-07-06 08:04] LABS: AUTOMATED NEUTROPHIL # 12.8 TH/MM3 (1.8-7.7); BASOPHIL # 0.1 TH/MM3 (0-0.2); BASOPHIL % 0.4 % (0.0-2.0); EOSINOPHIL # 0.1 TH/MM3 (0-0.4); EOSINOPHIL % 0.7 % (0.0-4.0); HEMATOCRIT 42.2 % (35.0-46.0); HEMO FLAGS DIFF FINAL; LYMPH % 14.2 % (9.0-44.0); LYMPHOCYTE # 2.2 TH/MM3 (1.0-4.8); MEAN CELL VOLUME 92.2 FL (80.0-100.0); MEAN CORPUSCULAR HGB CONC 32.5 % (32.0-36.0); MONO % 3.2 % (0.0-8.0); NEUT % 81.5 % (16.0-70.0); PLATELET COUNT 286 TH/MM3 (150-450); RED BLOOD COUNT 4.57 MIL/MM3 (4.00-5.30); RED CELL DISTRIBUTION WIDTH 13.4 % (11.6-17.2); WHITE BLOOD COUNT 15.7 TH/MM3 (4.0-11.0)
[2017-07-06 08:19] LABS: ALT (GPT) 27 U/L (10-53); ANION GAP 12 MEQ/L (5-15); AST (GOT) 19 U/L (15-37); BICARBONATE 22.5 MEQ/L (21.0-32.0); BLOOD UREA NITROGEN 18 MG/DL (7-18); CHLORIDE 109 MEQ/L (98-107); GLOMERULAR FILTRATION RATE 37 ML/MIN (>89); POTASSIUM 3.3 MEQ/L (3.5-5.1); SODIUM (NA) 143 MEQ/L (136-145)
[2017-07-06 08:21] VITALS: BP 141/67; PULSE 63; RESP 17; TEMP 97.8; O2SAT 99
[2017-07-06 08:21] LABS: ALKALINE PHOSPHATASE 98 U/L (45-117); TOTAL BILIRUBIN ADULT 0.3 MG/DL (0.2-1.0)
--- NOTE | 2017-07-06 08:44 | RADRPT ---
EXAM DATE/TIME: 07/06/2017 08:06 [place] COMPARISON: No previous studies available for comparison. INDICATIONS : Severe nausea, vomiting, diarrhea x1 day, with general all over abdomen pain. MEDICAL HISTORY : None. SURGICAL HISTORY : None. ENCOUNTER: Initial ACUITY: 1 day PAIN SCORE: 10/10 LOCATION: Abdomen FINDINGS: Supine and upright views of the abdomen were performed. The abdominal bowel gas pattern is normal. No air fluid levels are seen. A 12 mm calculus overlies the right mid abdomen. No abnormal masses or organomegaly is seen. The visualized lower lungs are clear. No evidence of free intraperitoneal gas . The osseous structures are unremarkable. Presumed phleboliths in the pelvis. CONCLUSION: 1. 12 mm calcification overlies the right midabdomen is unchanged and appears to be related to calcif ied lymph node or benign calcification in the upper abdomen. 2. No acute abnormalities. José Miguel Ro MD on July 06, 2017 at 8:41 Board Certified Radiologist. This report was verified electronically.
[2017-07-06 09:07] VITALS: BP 152/68; PULSE 70; RESP 16; TEMP 97.8; O2SAT 100
--- NOTE | 2017-07-06 09:16 | RADRPT ---
EXAM DATE/TIME: 07/06/2017 08:41 [place] COMPARISON: CT ABDOMEN & PELVIS W CONTRAST, April 27, 2017, 14:30. INDICATIONS : Abdominal bloating, vomiting and diarrhea. IV CONTRAST: 96 cc Omnipaque 350 (iohexol) IV ORAL CONTRAST: No oral contrast ingested. RADIATION DOSE: 9.96 CTDIvol (mGy) MEDICAL HISTORY : Cardiovascular disease. Diabetes mellitus type 2. Hypertension. SURGICAL HISTORY : Hysterectomy. ENCOUNTER: Initial ACUITY: 1 day PAIN SCALE: 4/10 LOCATION: Bilateral lower quadrant TECHNIQUE: Volumetric scanning of the abdomen and pelvis was performed. Using automated exposure control and ad justment of the mA and/or kV according to patient size, radiation dose was kept as low as reasonably achievable to obtain optimal diagnostic quality images. DICOM format image data is available electro nically for review and comparison. FINDINGS: Examination appears essentially stable. Structures are intact with facet arthritic changes and lower lumbar spine. Major retroperitoneal pelvic and inguinal vascular structures are normal with no mass o r adenopathy. There is lesion in left lobe liver is unchanged as well as other small low density lesi ons and left renal cyst is stable. Gallbladder signal structure without wall thickening or stones and no dilated ducts with normal pancreas and spleen. Bowel reveals interspersed diverticuli uncomplicat ed of the colon predominating in the sigmoid region there is no evidence free air or free fluid. CONCLUSION: Stable CT scan of the abdomen and pelvis. No acute intra-abdominal or pelvic process. Uncomplicated diverticuli of the colon with hepatic a nd renal cysts. Adryan Arias MD on July 06, 2017 at 9:09 Board Certified Radiologist. This report was verified electronically.
[2017-07-06] MEDS ORDERED: PRED50 PO (09:55)
[2017-07-06] MEDS ORDERED: METR-1 PO (09:55)
[2017-07-06] MEDS ORDERED: ZOFR4TAB3 SL (09:55)
[2017-07-06] MEDS ORDERED: BENA25TA6 PO (09:55)
[2017-07-06] MEDS ORDERED: VIBR100C PO (09:55)
[2017-07-06] MEDS ORDERED: diphenhydrAMINE HCL 25 MG CAP PO ONE (10:00)
[2017-07-06] MEDS ORDERED: predniSONE 50 MG TAB PO ONE (10:00)
[2017-07-06 10:10] VITALS: BP 130/77; TEMP 97.8
[2017-07-06 10:50] LABS: C. DIFF EPI 027 PRESUMPTIVE NEGATIVE (NEGATIVE)
== END 2017-07-06 10:10 | disposition home or self-care (01) ==
LOC: NEPE 07:18
DX: R11.2 Nausea with vomiting, unspecified (principal); R19.7 Diarrhea, unspecified; L03.116 Cellulitis of left lower limb; I10 Essential (primary) hypertension
CPT/HCPCS: 74020; 74177; 80053; 83690; 85025; 87493; 96361; 96374; 99285; J2405; J7030; J7512; Q9967